=== PATIENT | female | born 1940 | race Caucasian/White ===

== ENCOUNTER 2020-08-02 09:30 | Outpatient (REF) | payer MEDICARE, OTHER, SELFPAY ==
--- NOTE | 2020-08-02 09:40 | MM_ITS ---
EXAMINATION: BONE DENSITOMETRY CLINICAL INDICATION: Postmenopausal. COMPARISON: Baseline BD dated 08/06/2008. TECHNIQUE: Using a [employer] DXA System (software version: 13.1) manufactured by [employer], dual-energy x-ray absorptiometry was performed of the lumbar spine and left hip. The images are of good technical quality. Summary results are attached. FINDINGS: AP SPINE L1-L2 (excluding L3 and L4): The data of L1-L4 has been changed to exclude the L3 and L4 vertebral bodies, because degenerative changes at these levels may cause overestimation of lumbar spine density. Current: BMD 0.909 g/cm2, Z-score -1.2, T-score -2.1, osteopenia, 6.2% increase from baseline (<5% change is not significant). Baseline: BMD 0.856 g/cm2. LEFT FEMUR, NECK: Current: BMD 0.868 g/cm2, Z-score 0.3, T-score -1.2, osteopenia. Baseline: BMD 0.873 g/cm2. LEFT FEMUR, TOTAL: Current: BMD 1.025 g/cm, Z-score 1.5, T-score 0.1, normal, 2.2% decrease from baseline (<5% change is not significant). Baseline: BMD 1.048 g/cm2. IDENTIFIED RISK FACTORS: Secondary osteoporosis (early menopause). Hysterectomy. Bilateral oophorectomy. HISTORY OF FRACTURE: None listed. MEDICATIONS: Multivitamin. IMPRESSION: 1. DIAGNOSIS: Osteopenia based on the lowest T-score value of -2.1 in the lumbar spine applying World Health Organization criteria. 2. 10-YEAR FRACTURE RISK PREDICTION, FRAX: Major osteoporotic fracture (clinical spine, forearm, hip or shoulder) 10.9%. Hip fracture 2.1%. 3. Treatment Recommendations: NOF guidelines recommend consideration for treatment in postmenopausal women and men age 50 and older presenting with the following: -A hip or vertebral (clinical or morphometric) fracture. -T-score less than or equal to -2.5 at the femoral neck or spine after appropriate evaluation to exclude secondary causes. -Low bone mass at the hip or spine and a 10-year fracture probability by FRAX of greater than or equal to 3% for hip fracture or greater than or equal to 20% for major osteoporotic fracture based on the [place] adapted WHO algorithm. 4. Other Recommendations: All treatment decisions require clinical judgment and consideration of individual patient factors, including patient preferences, comorbidities, previous drug use, risk factors not captured in the FRAX model (e.g. frailty, falls, vitamin D deficiency, increased bone turnover, interval significant decline in bone density) and possible under or overestimation of fracture risk by FRAX. Additional medical evaluation for secondary cause of low bone mineral density may be appropriate. FUTURE SCAN RECOMMENDATION: People with diagnosed cases of osteoporosis or at high risk for fracture should have regular bone mineral density tests. For patients eligible for Medicare, routine testing is allowed once every 2 years. The testing frequency can be increased to one year for patients who have rapidly progressing disease, those who are receiving or discontinuing medical therapy to restore bone mass, or have additional risk factors.
== END 2020-08-02 09:31 | disposition home or self-care (01) ==
LOC: HO.MAMMO 09:30
PROVIDERS: PCP Internal Medicine; Visit Provider Internal Medicine
DX: Z13.820 Encounter for screening for osteoporosis (principal); Z78.0 Asymptomatic menopausal state; Z79.899 Other long term (current) drug therapy
CPT/HCPCS: 77080

== ENCOUNTER 2020-08-16 12:32 | Outpatient (REF) | payer MEDICARE, OTHER, SELFPAY | END 2020-08-16 12:33 | disposition home or self-care (01) | LOC: HO.BBR 12:32 | PROVIDERS: PCP Internal Medicine; Visit Provider Internal Medicine Medical Oncology | DX: D75.1 Secondary polycythemia (principal) | CPT/HCPCS: 85018; 99195 ==

== ENCOUNTER → 2020-10-10 10:45 | Outpatient (BNV) | payer MEDICARE, OTHER, SELFPAY | PROVIDERS: PCP Internal Medicine; Visit Provider Internal Medicine Medical Oncology | DX: D75.1 Secondary polycythemia (principal) | CPT/HCPCS: 99212; 99213; 99214 ==

== ENCOUNTER 2020-10-10 13:04 | Outpatient (REF) | payer MEDICARE, OTHER, SELFPAY | END 2020-10-10 13:05 | disposition home or self-care (01) | LOC: HO.BBR 13:04 | PROVIDERS: Visit Provider Internal Medicine Medical Oncology | DX: D45 Polycythemia vera (principal) | CPT/HCPCS: 36415; 80053; 85025; 99195; 99214 ==

== ENCOUNTER 2020-12-05 12:54 | Outpatient (REF) | payer MEDICARE, OTHER, SELFPAY | END 2020-12-05 12:55 | disposition home or self-care (01) | LOC: HO.BBR 12:54 | PROVIDERS: Visit Provider Internal Medicine Medical Oncology | DX: D75.1 Secondary polycythemia (principal) | CPT/HCPCS: 85014; 85018; 99195 ==

== ENCOUNTER 2021-01-07 14:52 | Outpatient (REF) | payer MEDICARE, OTHER, SELFPAY | END 2021-01-07 14:53 | disposition home or self-care (01) | LOC: HO.BBR 14:52 | PROVIDERS: Visit Provider Internal Medicine Medical Oncology | DX: D75.1 Secondary polycythemia (principal) | CPT/HCPCS: 85014; 85018; 99195 ==

== ENCOUNTER 2021-02-04 13:42 | Outpatient (REF) | payer MEDICARE, OTHER, SELFPAY ==
[2021-02-04 14:12] LABS: MANUAL DIFF FLAG NO
[2021-02-04 14:15] LABS: Basophils Absolute Auto 0.1 X10*3/uL (0.0-0.2); Basophils Percent Auto 0.5 % (0-2); Eosinophils Absolute Auto 0.2 X10*3/uL (0.0-0.4); Eosinophils Percent Auto 1.6 % (0-4); Hematocrit 47.8 % (37-47); Hemoglobin 15.6 g/dl (12.0-16.0); Imm Gran Abs Auto 0.03 X10*3/uL (0.00-0.03); Imm Gran Pct Auto 0.3 % (0.0-0.4); Lymphocytes Absolute Auto 3.9 X10*3/uL (1.2-4.9); Lymphocytes Percent Auto 33.3 % (20-40); Mean Corpuscular HGB Conc 32.6 g/dl (31.0-35.0); Mean Corpuscular Hemoglobin 30.6 pg (27.0-33.0); Mean Corpuscular Volume 93.7 fL (80-98); Mean Platelet Volume 9.3 fL (9.4-12.3); Monocytes Absolute Auto 1.1 X10*3/uL (0.1-1.2); Monocytes Percent Auto 9.1 % (2-11); Neutrophils Absolute Auto 6.4 X10*3/uL (2.0-8.3); Neutrophils Percent Auto 55.2 % (45-73); Platelet Count 326 X10*3/uL (160-400); Red Cell Distribution Width 14.1 % (11.0-16.0); White Blood Count 11.6 X10*3/uL (4.8-10.8)
[2021-02-04 14:48] LABS: Alanine Aminotransferase 16 U/L (0-31); Albumin Level 4.1 g/dL (3.5-5.0); Alkaline Phosphatase 85 U/L (39-117); Anion Gap 13 (12-20); Aspartate Amino Transferase 17 U/L (5-31); Bilirubin Total 0.4 mg/dL (0.0-1.0); Blood Urea Nitrogen 16 mg/dL (9-16); Calcium 8.8 mg/dL (8.4-10.2); Carbon Dioxide 23 mmol/L (22-29); Chloride 107 mmol/L (96-108); Estimated Glomerular Filt Rate > 60; Glucose Random 102 mg/dL (60-115); Iron 102 mcg/dL (30-160); Percent Iron Saturation 29 % (15-50); Potassium 4.3 mmol/L (3.3-5.1); Sodium 139 mmol/L (135-145); Total Iron Binding Capacity 357 mcg/dL (228-428); Total Protein 6.9 g/dL (6.5-8.0); Unsaturated Iron Binding 255 ug/dL
[2021-02-04 15:08] LABS: Ferritin 17 ng/mL (10-250)
== END 2021-02-04 13:43 | disposition home or self-care (01) ==
LOC: HO.BBR 13:42
PROVIDERS: PCP Internal Medicine; Visit Provider Internal Medicine Medical Oncology
DX: D45 Polycythemia vera (principal)
CPT/HCPCS: 36415; 80053; 82728; 83540; 85014; 85018; 85025; 99195

== ENCOUNTER 2021-04-07 12:58 | Outpatient (REF) | payer MEDICARE, OTHER, SELFPAY | END 2021-04-07 12:59 | disposition home or self-care (01) | LOC: HO.BBR 12:58 | PROVIDERS: Visit Provider Internal Medicine Medical Oncology | DX: D45 Polycythemia vera (principal) | CPT/HCPCS: 36415; 99195 ==

== ENCOUNTER 2021-06-09 12:51 | Outpatient (REF) | payer MEDICARE, OTHER, SELFPAY ==
[2021-06-09 13:10] LABS: MANUAL DIFF FLAG NO
[2021-06-09 13:12] LABS: Basophils Absolute Auto 0.1 X10*3/uL (0.0-0.2); Basophils Percent Auto 0.5 % (0-2); Eosinophils Absolute Auto 0.2 X10*3/uL (0.0-0.4); Eosinophils Percent Auto 1.6 % (0-4); Hematocrit 48.8 % (37-47); Hemoglobin 16.1 g/dl (12.0-16.0); Imm Gran Abs Auto 0.04 X10*3/uL (0.00-0.03); Imm Gran Pct Auto 0.4 % (0.0-0.4); Lymphocytes Absolute Auto 4.7 X10*3/uL (1.2-4.9); Lymphocytes Percent Auto 41.4 % (20-40); Mean Corpuscular Hemoglobin 31.1 pg (27.0-33.0); Mean Corpuscular Volume 94.2 fL (80-98); Mean Platelet Volume 9.1 fL (9.4-12.3); Monocytes Absolute Auto 0.9 X10*3/uL (0.1-1.2); Monocytes Percent Auto 8.3 % (2-11); Neutrophils Absolute Auto 5.4 X10*3/uL (2.0-8.3); Neutrophils Percent Auto 47.8 % (45-73); Platelet Count 330 X10*3/uL (160-400); Red Blood Count 5.18 X10*6/uL (4.20-5.50); White Blood Count 11.3 X10*3/uL (4.8-10.8)
[2021-06-09 13:53] LABS: Alanine Aminotransferase 15 U/L (0-31); Albumin Level 4.3 g/dL (3.5-5.0); Alkaline Phosphatase 75 U/L (39-117); Anion Gap 16 (12-20); Aspartate Amino Transferase 16 U/L (5-31); Bilirubin Total 0.3 mg/dL (0.0-1.0); Blood Urea Nitrogen 18 mg/dL (9-16); Calcium 10.5 mg/dL (8.4-10.2); Carbon Dioxide 22 mmol/L (22-29); Chloride 106 mmol/L (96-108); Estimated Glomerular Filt Rate > 60; Glucose Random 101 mg/dL (60-115); Iron 150 mcg/dL (30-160); Percent Iron Saturation 38 % (15-50); Potassium 4.5 mmol/L (3.3-5.1); Sodium 139 mmol/L (135-145); Total Iron Binding Capacity 393 mcg/dL (228-428); Total Protein 7.3 g/dL (6.5-8.0); Unsaturated Iron Binding 243 ug/dL
[2021-06-09 14:14] LABS: Ferritin 22 ng/mL (10-250)
== END 2021-06-09 12:52 | disposition home or self-care (01) ==
LOC: HO.BBR 12:51
PROVIDERS: Visit Provider Internal Medicine Medical Oncology
DX: D45 Polycythemia vera (principal)
CPT/HCPCS: 36415; 80053; 82728; 83540; 85018; 85025; 99195

== ENCOUNTER 2021-08-12 12:59 | Outpatient (REF) | payer MEDICARE, OTHER, SELFPAY | END 2021-08-12 13:00 | disposition home or self-care (01) | LOC: HO.BBR 12:59 | PROVIDERS: Visit Provider Internal Medicine Medical Oncology | DX: D45 Polycythemia vera (principal) | CPT/HCPCS: 85018; 99195 ==

== ENCOUNTER 2021-10-14 11:53 | Outpatient (REF) | payer MEDICARE, OTHER, SELFPAY | END 2021-10-14 11:54 | disposition home or self-care (01) | LOC: HO.BBR 11:53 | PROVIDERS: Visit Provider Internal Medicine Medical Oncology | DX: D45 Polycythemia vera (principal) | CPT/HCPCS: 85014; 85018; 99195 ==

== ENCOUNTER 2021-12-16 11:58 | Outpatient (REF) | payer MEDICARE, OTHER, SELFPAY ==
[2021-12-16 12:11] LABS: MANUAL DIFF FLAG NO
[2021-12-16 12:15] LABS: Basophils Absolute Auto 0.1 X10*3/uL (0.0-0.2); Basophils Percent Auto 0.5 % (0-2); Eosinophils Absolute Auto 0.3 X10*3/uL (0.0-0.4); Eosinophils Percent Auto 2.4 % (0-4); Hematocrit 46.5 % (37.0-47.0); Hemoglobin 15.3 g/dl (12.0-16.0); Imm Gran Abs Auto 0.02 X10*3/uL (0.00-0.03); Imm Gran Pct Auto 0.2 % (0.0-0.4); Lymphocytes Absolute Auto 3.6 X10*3/uL (1.2-4.9); Lymphocytes Percent Auto 34.1 % (20-40); Mean Corpuscular HGB Conc 32.9 g/dl (31.0-35.0); Mean Corpuscular Hemoglobin 30.4 pg (27.0-33.0); Mean Corpuscular Volume 92.4 fL (80.0-98.0); Mean Platelet Volume 9.2 fL (9.4-12.3); Monocytes Absolute Auto 0.9 X10*3/uL (0.1-1.2); Monocytes Percent Auto 8.8 % (2-11); Neutrophils Absolute Auto 5.6 x10*3/uL (2.0-8.3); Platelet Count 347 X10*3/uL (160-400); Red Blood Count 5.03 X10*6/uL (4.20-5.50); Red Cell Distribution Width 13.9 % (11.0-16.0); White Blood Count 10.4 X10*3/uL (4.8-10.8)
[2021-12-16 12:31] LABS: Alanine Aminotransferase 13 U/L (0-31); Albumin Level 4.1 g/dL (3.5-5.0); Alkaline Phosphatase 80 U/L (39-117); Anion Gap 13 (12-20); Aspartate Amino Transferase 15 U/L (5-31); Bilirubin Total 0.5 mg/dL (0.0-1.0); Blood Urea Nitrogen 18 mg/dL (9-16); Calcium 10.1 mg/dL (8.4-10.2); Carbon Dioxide 25 mmol/L (22-29); Chloride 105 mmol/L (96-108); Estimated Glomerular Filt Rate > 60; Glucose Random 105 mg/dL (60-115); Iron 141 mcg/dL (30-160); Potassium 4.4 mmol/L (3.3-5.1); Sodium 139 mmol/L (135-145)
[2021-12-16 12:42] LABS: Percent Iron Saturation 37 % (15-50); Total Iron Binding Capacity 377 mcg/dL (228-428); Unsaturated Iron Binding 236 ug/dL
[2021-12-16 12:50] LABS: Ferritin 15 ng/mL (10-250)
== END 2021-12-16 11:59 | disposition home or self-care (01) ==
LOC: HO.BBR 11:58
PROVIDERS: Visit Provider Internal Medicine Medical Oncology
DX: D45 Polycythemia vera (principal)
CPT/HCPCS: 36415; 80053; 82728; 83540; 85014; 85018; 85025; 99195

== ENCOUNTER 2022-02-10 10:54 | Outpatient (REF) | payer MEDICARE, OTHER, SELFPAY | END 2022-02-10 10:55 | disposition home or self-care (01) | LOC: HO.BBR 10:54 | PROVIDERS: PCP Internal Medicine; Visit Provider Internal Medicine Medical Oncology | DX: D75.1 Secondary polycythemia (principal) | CPT/HCPCS: 85018 ==

== ENCOUNTER 2022-02-23 11:45 | Outpatient (REF) | payer MEDICARE, OTHER, SELFPAY | END 2022-02-23 11:46 | disposition home or self-care (01) | LOC: HO.BBR 11:45 | PROVIDERS: Visit Provider Internal Medicine Medical Oncology | DX: D75.1 Secondary polycythemia (principal) | CPT/HCPCS: 85018; 99195 ==

== ENCOUNTER 2022-03-26 14:11 | Outpatient (REF) | payer MEDICARE, OTHER, SELFPAY | END 2022-03-26 14:12 | disposition home or self-care (01) | LOC: HO.BBR 14:11 | PROVIDERS: Visit Provider Internal Medicine Medical Oncology | DX: D75.1 Secondary polycythemia (principal) | CPT/HCPCS: 85018; 99195 ==

== ENCOUNTER 2022-05-27 13:49 | Outpatient (REF) | payer MEDICARE, OTHER, SELFPAY ==
[2022-05-27 14:15] LABS: MANUAL DIFF FLAG NO
[2022-05-27 14:18] LABS: Basophils Absolute Auto 0.1 X10*3/uL (0.0-0.2); Basophils Percent Auto 0.6 % (0-2); Eosinophils Absolute Auto 0.2 X10*3/uL (0.0-0.4); Eosinophils Percent Auto 1.5 % (0-4); Hemoglobin 14.8 g/dl (12.0-16.0); Imm Gran Abs Auto 0.03 X10*3/uL (0.00-0.03); Imm Gran Pct Auto 0.3 % (0.0-0.4); Lymphocytes Percent Auto 37.1 % (20-40); Mean Corpuscular HGB Conc 32.2 g/dl (31.0-35.0); Mean Corpuscular Hemoglobin 30.6 pg (27.0-33.0); Mean Platelet Volume 9.4 fL (9.4-12.3); Monocytes Percent Auto 9.2 % (2-11); Neutrophils Absolute Auto 5.5 x10*3/uL (2.0-8.3); Neutrophils Percent Auto 51.3 % (45-73); Platelet Count 296 X10*3/uL (160-400); Red Blood Count 4.84 X10*6/uL (4.20-5.50); Red Cell Distribution Width 16.4 % (11.0-16.0); White Blood Count 10.8 X10*3/uL (4.8-10.8)
[2022-05-27 15:15] LABS: Alanine Aminotransferase 10 U/L (0-31); Albumin Level 4.2 g/dL (3.5-5.0); Alkaline Phosphatase 74 U/L (39-117); Anion Gap 12 (12-20); Aspartate Amino Transferase 14 U/L (5-31); Bilirubin Total 0.4 mg/dL (0.0-1.0); Blood Urea Nitrogen 14 mg/dL (9-16); Calcium 9.5 mg/dL (8.4-10.2); Carbon Dioxide 23 mmol/L (22-29); Chloride 108 mmol/L (96-108); Estimated Glomerular Filt Rate > 60; Glucose Random 114 mg/dL (60-115); Iron 119 mcg/dL (30-160); Percent Iron Saturation 28 % (15-50); Potassium 4.4 mmol/L (3.3-5.1); Sodium 139 mmol/L (135-145); Total Iron Binding Capacity 419 mcg/dL (228-428); Unsaturated Iron Binding 300 ug/dL
[2022-05-27 15:36] LABS: Ferritin 13 ng/mL (10-250)
== END 2022-05-27 13:50 | disposition home or self-care (01) ==
LOC: HO.BBR 13:49
PROVIDERS: Visit Provider Internal Medicine Medical Oncology
DX: D75.1 Secondary polycythemia (principal)
CPT/HCPCS: 36415; 80053; 82728; 83540; 85014; 85018; 85025; 99195

== ENCOUNTER 2022-07-14 10:48 | Outpatient (REF) | payer MEDICARE, OTHER, SELFPAY ==
[2022-07-14 14:08] LABS: Alanine Aminotransferase 17 U/L (0-31); Albumin Level 4.3 g/dL (3.5-5.0); Alkaline Phosphatase 82 U/L (39-117); Anion Gap 16 (12-20); Aspartate Amino Transferase 19 U/L (5-31); Bilirubin Total 0.4 mg/dL (0.0-1.0); Blood Urea Nitrogen 17 mg/dL (9-16); Calcium 9.5 mg/dL (8.4-10.2); Carbon Dioxide 23 mmol/L (22-29); Chloride 106 mmol/L (96-108); Cholesterol 202 mg/dL; Estimated Glomerular Filt Rate > 60; Glucose Random 105 mg/dL (60-115); HDL Cholesterol 57 mg/dL; LDL Cholesterol Calculated 128 mg/dl; Potassium 4.5 mmol/L (3.3-5.1); Sodium 140 mmol/L (135-145); Total Protein 7.2 g/dL (6.5-8.0); Triglycerides 88 mg/dL
[2022-07-14 14:31] LABS: Thyroid Stimulating Hormone 1.28 uIU/mL (0.32-4.0); Vitamin D 25-OH Total 31.9 ng/mL (>30)
[2022-07-14 14:37] LABS: Folate 10.2 ng/mL (> or = 4.0); Vitamin B12 380 pg/mL (200-900)
== END 2022-07-14 10:49 | disposition home or self-care (01) ==
LOC: HO.HMGCLDS 10:48
PROVIDERS: PCP Internal Medicine; Visit Provider Internal Medicine
DX: E66.9 Obesity, unspecified (principal); E78.00 Pure hypercholesterolemia, unspecified
CPT/HCPCS: 36415; 80053; 80061; 82306; 82607; 82746; 84439; 84443

== ENCOUNTER 2022-07-28 13:47 | Outpatient (REF) | payer MEDICARE, OTHER, SELFPAY | END 2022-07-28 13:48 | disposition home or self-care (01) | LOC: HO.BBR 13:47 | PROVIDERS: Visit Provider Internal Medicine Medical Oncology | DX: D75.1 Secondary polycythemia (principal) | CPT/HCPCS: 85018; 99195 ==

== ENCOUNTER 2022-09-29 13:43 | Outpatient (REF) | payer MEDICARE, OTHER, SELFPAY ==
[2022-09-29 14:24] LABS: Basophils Absolute Auto 0.1 X10*3/uL (0.0-0.2); Basophils Percent Auto 0.5 % (0-2); Eosinophils Absolute Auto 0.2 X10*3/uL (0.0-0.4); Eosinophils Percent Auto 1.8 % (0-4); Hematocrit 47.5 % (37.0-47.0); Hemoglobin 15.6 g/dl (12.0-16.0); Imm Gran Abs Auto 0.02 X10*3/uL (0.00-0.03); Imm Gran Pct Auto 0.2 % (0.0-0.4); Lymphocytes Absolute Auto 3.6 X10*3/uL (1.2-4.9); Lymphocytes Percent Auto 38.2 % (20-40); MANUAL DIFF FLAG NO; Mean Corpuscular HGB Conc 32.8 g/dl (31.0-35.0); Mean Corpuscular Hemoglobin 31.1 pg (27.0-33.0); Mean Corpuscular Volume 94.8 fL (80.0-98.0); Mean Platelet Volume 9.1 fL (9.4-12.3); Monocytes Absolute Auto 0.8 X10*3/uL (0.1-1.2); Monocytes Percent Auto 8.1 % (2-11); Neutrophils Absolute Auto 4.8 x10*3/uL (2.0-8.3); Neutrophils Percent Auto 51.2 % (45-73); Platelet Count 332 X10*3/uL (160-400); Red Blood Count 5.01 X10*6/uL (4.20-5.50); Red Cell Distribution Width 12.7 % (11.0-16.0); White Blood Count 9.4 X10*3/uL (4.8-10.8)
[2022-09-29 15:40] LABS: Alanine Aminotransferase 13 U/L (0-31); Albumin Level 4.1 g/dL (3.5-5.0); Alkaline Phosphatase 85 U/L (39-117); Anion Gap 13 (12-20); Aspartate Amino Transferase 16 U/L (5-31); Bilirubin Total 0.5 mg/dL (0.0-1.0); Blood Urea Nitrogen 18 mg/dL (9-16); Calcium 9.9 mg/dL (8.4-10.2); Carbon Dioxide 24 mmol/L (22-29); Chloride 103 mmol/L (96-108); Estimated Glomerular Filt Rate > 60; Ferritin 18 ng/mL (10-250); Glucose Random 109 mg/dL (60-115); Iron 108 mcg/dL (30-160); Percent Iron Saturation 30 % (15-50); Potassium 4.3 mmol/L (3.3-5.1); Sodium 136 mmol/L (135-145); Total Iron Binding Capacity 356 mcg/dL (228-428); Unsaturated Iron Binding 248 ug/dL
== END 2022-09-29 13:44 | disposition home or self-care (01) ==
LOC: HO.BBR 13:43
PROVIDERS: Visit Provider Internal Medicine Medical Oncology
DX: D75.1 Secondary polycythemia (principal)
CPT/HCPCS: 36415; 80053; 82728; 83540; 85018; 85025; 99195

== ENCOUNTER 2022-12-03 13:48 | Outpatient (REF) | payer MEDICARE, OTHER, SELFPAY | END 2022-12-03 13:49 | disposition home or self-care (01) | LOC: HO.BBR 13:48 | PROVIDERS: Visit Provider Internal Medicine Medical Oncology | DX: D75.1 Secondary polycythemia (principal) | CPT/HCPCS: 85014; 85018; 99195 ==

== ENCOUNTER 2023-02-01 13:42 | Outpatient (REF) | payer MEDICARE, OTHER, SELFPAY | END 2023-02-01 13:43 | disposition home or self-care (01) | LOC: HO.BBR 13:42 | PROVIDERS: PCP Internal Medicine; Visit Provider Internal Medicine Medical Oncology | DX: D75.1 Secondary polycythemia (principal) | CPT/HCPCS: 85014; 85018; 99195 ==

== ENCOUNTER 2023-05-03 13:43 | Outpatient (REF) | payer MEDICARE, OTHER, SELFPAY | END 2023-05-03 13:44 | disposition home or self-care (01) | LOC: HO.BBR 13:43 | PROVIDERS: PCP Internal Medicine; Visit Provider Internal Medicine Medical Oncology | DX: D45 Polycythemia vera (principal) | CPT/HCPCS: 85018; 99195 ==

== ENCOUNTER 2023-05-17 12:39 | Outpatient (REF) | payer MEDICARE, OTHER, SELFPAY | END 2023-05-17 12:40 | disposition home or self-care (01) | LOC: HO.BBR 12:39 | PROVIDERS: PCP Internal Medicine; Visit Provider Internal Medicine Medical Oncology | DX: D75.1 Secondary polycythemia (principal) | CPT/HCPCS: 85018; 99195 ==

== ENCOUNTER 2023-07-19 08:31 | Outpatient (REF) | payer MEDICARE, OTHER, SELFPAY ==
[2023-07-19 11:22] LABS: MANUAL DIFF FLAG NO
[2023-07-19 11:32] LABS: Basophils Percent Auto 0.4 % (0-2); Eosinophils Absolute Auto 0.2 X10*3/uL (0.0-0.4); Eosinophils Percent Auto 1.9 % (0-4); Hematocrit 48.2 % (37.0-47.0); Hemoglobin 15.8 g/dl (12.0-16.0); Imm Gran Abs Auto 0.04 X10*3/uL (0.00-0.03); Imm Gran Pct Auto 0.4 % (0.0-0.4); Immature Retic Fraction 13.4 % (3.0-15.9); Lymphocytes Absolute Auto 3.8 X10*3/uL (1.2-4.9); Lymphocytes Percent Auto 39.3 % (20-40); Mean Corpuscular HGB Conc 32.8 g/dl (31.0-35.0); Mean Corpuscular Volume 91.6 fL (80.0-98.0); Mean Platelet Volume 10.1 fL (9.4-12.3); Monocytes Absolute Auto 0.8 X10*3/uL (0.1-1.2); Monocytes Percent Auto 7.9 % (2-11); Neutrophils Absolute Auto 4.9 x10*3/uL (2.0-8.3); Neutrophils Percent Auto 50.1 % (45-73); Platelet Count 386 X10*3/uL (160-400); Red Blood Count 5.26 X10*6/uL (4.20-5.50); Red Cell Distribution Width 14.2 % (11.0-16.0); Retic HGB Equivalent 36.4 pg (30.0-35.0); Reticulocyte Percent 1.9 % (0.5-1.8); Reticulocytes Absolute 0.097 X10*6/uL (0.026-0.095); White Blood Count 9.8 X10*3/uL (4.8-10.8)
[2023-07-19 12:21] LABS: Ferritin 22 ng/mL (10-250); Free T4 (Free Thyroxine) 0.83 ng/dL (0.71-1.85)
[2023-07-19 12:24] LABS: Folate 11.3 ng/mL (> or = 4.0); Vitamin B12 410 pg/mL (200-900)
[2023-07-19 12:31] LABS: Alanine Aminotransferase 10 U/L (0-31); Albumin Level 4.4 g/dL (3.5-5.0); Alkaline Phosphatase 80 U/L (39-117); Anion Gap 12 (12-20); Aspartate Amino Transferase 17 U/L (5-31); Bilirubin Total 0.4 mg/dL (0.0-1.0); Blood Urea Nitrogen 20 mg/dL (9-16); Calcium 10.2 mg/dL (8.4-10.2); Carbon Dioxide 22 mmol/L (22-29); Chloride 108 mmol/L (96-108); Estimated Glomerular Filt Rate > 60; Glucose Random 107 mg/dL (60-115); Potassium 4.1 mmol/L (3.3-5.1); Sodium 138 mmol/L (135-145); Total Protein 7.7 g/dL (6.5-8.0)
[2023-07-19 12:32] LABS: Thyroid Stimulating Hormone 1.38 uIU/mL (0.32-4.0)
== END 2023-07-19 08:32 | disposition home or self-care (01) ==
LOC: HO.HMGCLDS 08:31
PROVIDERS: Internal Medicine Medical Oncology; PCP Internal Medicine; Visit Provider Internal Medicine
DX: D75.1 Secondary polycythemia (principal); I10 Essential (primary) hypertension
CPT/HCPCS: 36415; 80053; 82607; 82728; 82746; 84439; 84443; 85025; 85045

== ENCOUNTER 2023-07-21 12:40 | Outpatient (AMB) | payer MEDICARE, OTHER, SELFPAY ==
[2023-07-21 12:45] VITALS: BP 148/82; PULSE 75; O2SAT 98; BMI 37.4
--- NOTE | 2023-07-21 12:45 | A.OFFPC_ITS ---
Vital Signs 07/21/23 12:45 Height 5 ft 1 in Weight 198 lb BMI 37.4 BP 148/82 H Blood Pressure Location Lt brachial Position Sitting Pulse 75 Pulse Source Pulse Oximeter Pulse Oximetry (%) 98 Oxygen Delivery Method Room Air Intake Visit Reasons: Polycythemia hypertension Allergies hydrochlorothiazide [HYDROCHLOROTHIAZIDE] Allergy (Intermediate, Verified 07/21/23 12:45) SEVERE CRAMPING aspirin [From Percodan] Allergy (Unknown, Verified 07/21/23 12:45) Tachycardia metoprolol Allergy (Unknown, Verified 07/21/23 12:45) Muscle aches morphine [MORPHINE] Allergy (Unknown, Verified 07/21/23 12:45) Nausea and Vomiting oxycodone [From PERCODAN] Allergy (Unknown, Verified 07/21/23 12:45) Unknown Seasonal Allergies Allergy (Unknown, Verified 07/21/23 12:45) Itchy Eyes hydrochloride Allergy (Mild, Uncoded 07/21/23 12:45) Stomach Upset Medication List - Last Reconciled 07/21/23 by Vlad Ralph MD amlodipine-valsartan 5-320 mg 1 tab PO DAILY 90 days aspirin 81 mg PO DAILY cholecalciferol (vitamin D3) (Vitamin D3) 25 mcg PO DAILY multivitamin 1 tab PO DAILY Tobacco use date assessed: 01/14/23 Fall risk assessment: No Falls in past year Last assessed Fall Risk: 07/21/23 Dental Screening Dental Screen Date: 07/21/23 Did you have a dental visit in the last 12 months?: Yes Did you have a dental problem in the last 6 months where you did not have access to dental care?: No Was dental information given to patient?: Patient has dentist HPI Polycythemia hypertension HPI Details 83-year-old obese female with polycythem ia vera having therapeutic phlebotomy hypertension and benign hematuria coming in for follow-up last seen in December 2022 blood work was requested. [facility] Medical History (Updated 07/13/23 @ 11:21 by KarmaKey) Osteopenia Diaphragmatic hernia Renal calculi Cervical spondylosis Allergic rhinitis Vitamin D deficiency Tubular adenoma of colon Hypertension Erythrocytosis Surgical History Vaginal cyst History of cataract surgery S/P CLARISSA-BSO (total abdominal hysterectomy and bilateral salpingo-oophorectomy) History of appendectomy History of reconstruction of both breasts Family History Father Lung cancer Brother Lung cancer COPD (chronic obstructive pulmonary disease) Diabetes Daughter HTN (hypertension) Stroke Social History Household Members: None Housing: House Are you a primary hospice spiritual care coordinator to a significant other at home: No Do you presently have visiting nurse or other home services: No Alcohol intake: current Alcohol intake frequency: holidays/special occasions only Alcohol type: wine Patient Tobacco Use Status: Never used Tobacco e-Cigarette/Vaping Use: Never Used Second Hand Smoke Exposure: No service: No Current occupational status: retired Cognitive needs: No Hearing needs: No Vision needs: Yes Questionnaire PHQ-9 Over the last 2 weeks, how often have you been bothered by any of the following problems? 1. Little interest or pleasure in doing things: not at all 2. Feeling down, depressed, or hopeless: not at all 3. Trouble falling or staying asleep, or sleeping too much: not at all 4. Feeling tired or having little energy: not at all 5. Poor appetite or overeating: not at all 6. Feeling bad about yourself - or that you are a failure or have let yourself or your family down: not at all 7. Trouble concentrating on things, such as reading the newspaper or watching television: not at all 8. Moving or speaking so slowly that other people could have noticed. Or the opposite - being so fidgety or restless that you have been moving around a lot more than usual: not at all 9. Thoughts that you would be better off or of hurting yourself in some way: not at all Total score: 0 Depression Screening Interpretation: Negative Source: Developed by Drs. Pola Vargas, Theresa Glover, Anirudh Voss and colleagues, with an educational sujata from [employer]. Thrive Questionnaire Date Thrive assessed: 01/14/23 AUDIT C Alcohol Use Questionnaire (AUDIT-C) 1. How often do you have a drink containing alcohol?: Never 3. How often do you have six or more drinks on one occasion?: Never Total Score: 0 ANAMARIA-7 AMB Questionnaire ANAMARIA-7 Date ANAMARIA - 7 assessed: 01/14/23 Source: Developed by Drs. Pola Vargas, Theresa Glover, Anirudh Voss and colleagues, with an educational sujata from [employer]. Physical exam (Primary Care) Vital Signs: Last Vital Signs Pulse 75 07/21/23 12:45 BP 148/82 H 07/21/23 12:45 Pulse Ox 98 07/21/23 12:45 Oxygen Delivery Method Room Air 07/21/23 12:45 BMI result Body Mass Index 37.4 Tobacco/Smoking Status: Tobacco use Status Tobacco use date assessed 01/14/23 07/21/23 12:46 Patient Tobacco Use Status Never used Tobacco 07/21/23 12:46 e-Cigarette/Vaping Use Never Used 07/21/23 12:46 PHQ-9: PHQ-9 Score PHQ-9: Total score 0 07/21/23 13:26 Depression Screening Interpretation: Negative Thrive Assessment: Date of Thrive Assessment Date Thrive assessed 01/14/23 07/21/23 12:46 Const General: alert; No acute distress Eyes Conjunctivae: conjunctivae normal Resp Auscultation: clear to auscultation bilaterally Cardio Rate: regular rate Rhythm: regular rhythm GI Inspection: Yes normal to inspection Extrem General: Yes normal to inspection and No edema Assessment and Plan Assessment & Plan (1) Obesity (BMI 30-39.9): Code(s): E66.9 - Obesity, unspecified Plan: Diet and exercise (2) Polycythemia vera: Code(s): D45 - Polycythemia vera Plan: Patient continues to follow-up with Hematology Oncology and has therapeutic phlebotomy hematocrit goal of 15-16 (3) Hypertension: Code(s): I10 - Essential (primary) hypertension Qualifiers: Hypertension type: essential hypertension Qualified Code(s): I10 - Essential (primary) hypertension Plan: Continue with blood pressure medication. Decrease salt intake and exercise patient on amlodipine valsartan 5/320 mg once a day Medications: New amlodipine-valsartan 10-320 mg 1 tab PO DAILY 90 tabs 2RF I10 - Essential (primary) hypertension Coding Level of Care Code Est Pt Level 4 (84915) Diagnoses Obesity (BMI 30-39.9) E66.9 Polycythemia vera D45 Essential hypertension I10 Hypertension type: essential hypertension
== END 2023-07-21 14:10 | disposition home or self-care (01) ==
PROVIDERS: Visit Provider Internal Medicine
DX: D45 Polycythemia vera (principal); I10 Essential (primary) hypertension; E66.9 Obesity, unspecified; Z68.37 Body mass index [BMI] 37.0-37.9, adult
CPT/HCPCS: 99214

== ENCOUNTER 2023-07-28 11:54 | Outpatient (REF) | payer MEDICARE, OTHER, SELFPAY | END 2023-07-28 11:55 | disposition home or self-care (01) | LOC: HO.BBR 11:54 | PROVIDERS: Visit Provider Internal Medicine Medical Oncology | DX: D75.1 Secondary polycythemia (principal) | CPT/HCPCS: 85018; 99195 ==

== ENCOUNTER 2023-09-28 11:45 | Outpatient (REF) | payer MEDICARE, OTHER, SELFPAY | END 2023-09-28 11:46 | disposition home or self-care (01) | LOC: HO.BBR 11:45 | PROVIDERS: PCP Internal Medicine; Visit Provider Internal Medicine Medical Oncology | DX: D75.1 Secondary polycythemia (principal) | CPT/HCPCS: 85018; 99195 ==

== ENCOUNTER 2023-10-26 14:29 | Outpatient (AMB) | payer MEDICARE, OTHER, SELFPAY ==
[2023-10-26 14:33] VITALS: BP 150/86; PULSE 93; O2SAT 97; BMI 37.3
--- NOTE | 2023-10-26 14:33 | A.OFFPC_ITS ---
Vital Signs 10/26/23 14:33 10/26/23 15:18 Height 5 ft 1 in Weight 197 lb 4 oz BMI 37.3 BP 150/86 H 134/80 Blood Pressure Location Lt brachial Lt brachial Position Sitting Sitting Pulse 93 Pulse Source Pulse Oximeter Pulse Oximetry (%) 97 Oxygen Delivery Method Room Air Intake Visit Reasons: Hypertension Reel Fed Printer Required: No Accompanied by: Self / Same As Patient Allergies hydrochlorothiazide [HYDROCHLOROTHIAZIDE] Allergy (Intermediate, Verified 10/26/23 14:33) SEVERE CRAMPING aspirin [From Percodan] Allergy (Unknown, Verified 10/26/23 14:33) Tachycardia metoprolol Allergy (Unknown, Verified 10/26/23 14:33) Muscle aches morphine [MORPHINE] Allergy (Unknown, Verified 10/26/23 14:33) Nausea and Vomiting oxycodone [From PERCODAN] Allergy (Unknown, Verified 10/26/23 14:33) Unknown Seasonal Allergies Allergy (Unknown, Verified 10/26/23 14:33) Itchy Eyes hydrochloride Allergy (Mild, Uncoded 07/27/23 13:06) Stomach Upset Medication List - Last Reconciled 10/26/23 by Vlad Ralph MD amlodipine-valsartan 10-320 mg 1 tab PO DAILY aspirin 81 mg PO DAILY cholecalciferol (vitamin D3) (Vitamin D3) 25 mcg PO DAILY hydroxyurea 500 mg PO BID multivitamin 1 tab PO DAILY Tobacco use date assessed: 01/14/23 Last assessed Fall Risk: 10/26/23 Dental Screening Dental Screen Date: 10/26/23 Did you have a dental visit in the last 12 months?: Yes Did you have a dental problem in the last 6 months where you did not have access to dental care?: No Was dental information given to patient?: Patient has dentist HPI Hypertension HPI Details 83-year-old obese female with a history of polycythemia vera and hypertension last seen in July 2023. Patient's colonoscopy is done decline mammogram. Review of the notes has seen urology regarding the a microscopic hematuria nephrolithiasis options of serial examination versus ESWL planned ESWL. Patient was seen in October 2023. Patient also follows up with hematology oncology having therapeutic phlebotomy. And history of breast cancer with bilateral mastectomies with implants [id number] having breast reconstruction with implant rup patient has Hydrea therapy 500 mg once a day trying to keep the hemoglobin at 14-15 g A PFSH Medical History (Updated 10/26/23 @ 15:21 by Vlad Ralph MD) Osteopenia Diaphragmatic hernia Renal calculi Cervical spondylosis Allergic rhinitis Vitamin D deficiency Tubular adenoma of colon Hypertension Erythrocytosis Surgical History Vaginal cyst History of cataract surgery S/P CLARISSA-BSO (total abdominal hysterectomy and bilateral salpingo-oophorectomy) History of appendectomy History of reconstruction of both breasts Family History Father Lung cancer Brother Lung cancer COPD (chronic obstructive pulmonary disease) Diabetes Daughter HTN (hypertension) Stroke Social History Household Members: None Housing: House Are you a primary health care facilities inspector to a significant other at home: No Do you presently have visiting nurse or other home services: No Alcohol intake: current Alcohol intake frequency: holidays/special occasions only Alcohol type: wine Patient Tobacco Use Status: Never used Tobacco e-Cigarette/Vaping Use: Never Used Second Hand Smoke Exposure: No service: No Current occupational status: retired Cognitive needs: No Hearing needs: No Vision needs: Yes Questionnaire Thrive Questionnaire Date Thrive assessed: 01/14/23 ANAMARIA-7 AMB Questionnaire ANAMARIA-7 Date ANAMARIA - 7 assessed: 01/14/23 Source: Developed by Drs. Pola Vargas, Theresa Glover, Anirudh Voss and colleagues, with an educational sujata from [employer]. Physical exam (Primary Care) Vital Signs: Last Vital Signs Pulse 93 10/26/23 14:33 BP 150/86 H 10/26/23 14:33 Pulse Ox 97 10/26/23 14:33 Oxygen Delivery Method Room Air 10/26/23 14:33 BMI result Body Mass Index 37.3 Tobacco/Smoking Status: Tobacco use Status Tobacco use date assessed 01/14/23 10/26/23 14:34 Patient Tobacco Use Status Never used Tobacco 10/26/23 14:34 e-Cigarette/Vaping Use Never Used 10/26/23 14:34 Thrive Assessment: Date of Thrive Assessment Date Thrive assessed 01/14/23 10/26/23 14:34 Const General: alert; No acute distress Eyes Conjunctivae: conjunctivae normal Resp Auscultation: clear to auscultation bilaterally Cardio Rate: regular rate Rhythm: regular rhythm GI Inspection: Yes normal to inspection Extrem General: Yes normal to inspection and No edema Assessment and Plan Assessment & Plan (1) Obesity (BMI 30-39.9): Code(s): E66.9 - Obesity, unspecified Plan: Diet and exercise (2) Polycythemia vera: Code(s): D45 - Polycythemia vera Plan: Patient follows up with hematology and has therapeutic phlebotomy and placed on Hydrea (3) Hypertension: Code(s): I10 - Essential (primary) hypertension Qualifiers: Hypertension type: essential hypertension Qualified Code(s): I10 - Essential (primary) hypertension Plan: Continue with blood pressure medication. Decrease salt intake and exercise on amlodipine valsartan 08/03/2020 once a day (4) Renal calculi: Comment: Bilateral September 2018, April 2020 left renal calculi Code(s): N20.0 - Calculus of kidney Plan: seeing Urology and planned ESWL Orders: Orders Free T4 (Free Thyroxine) Today I10 - Essential (primary) hypertension Vitamin B12 and Folate Today I10 - Essential (primary) hypertension Vitamin D 25-OH Total Today I10 - Essential (primary) hypertension Thyroid Stimulating Hormone Today I10 - Essential (primary) hypertension Lipid Panel Today E78.00 - Pure hypercholesterolemia, unspecified Coding Level of Care Code Est Pt Level 4 (39826) Diagnoses Obesity (BMI 30-39.9) E66.9 Polycythemia vera D45 Essential hypertension I10 Hypertension type: essential hypertension Renal calculi N20.0
[2023-10-26 15:18] VITALS: BP 134/80
== END 2023-10-26 15:29 | disposition home or self-care (01) ==
PROVIDERS: PCP Internal Medicine; Visit Provider Internal Medicine
DX: D45 Polycythemia vera (principal); E66.9 Obesity, unspecified; I10 Essential (primary) hypertension; Z68.37 Body mass index [BMI] 37.0-37.9, adult; N20.0 Calculus of kidney
CPT/HCPCS: 99214

== ENCOUNTER 2023-11-30 11:44 | Outpatient (REF) | payer MEDICARE, OTHER, SELFPAY | END 2023-11-30 11:45 | disposition home or self-care (01) | LOC: HO.BBR 11:44 | PROVIDERS: PCP Internal Medicine; Visit Provider Internal Medicine Medical Oncology | DX: D75.1 Secondary polycythemia (principal) | CPT/HCPCS: 85018; 99195 ==

== ENCOUNTER 2024-01-27 11:54 | Outpatient (REF) | payer MEDICARE, OTHER, SELFPAY | END 2024-01-27 11:55 | disposition home or self-care (01) | LOC: HO.BBR 11:54 | PROVIDERS: PCP Internal Medicine; Visit Provider Internal Medicine Medical Oncology | DX: D75.1 Secondary polycythemia (principal) | CPT/HCPCS: 85014; 85018; 99195 ==

== ENCOUNTER 2024-04-05 11:53 | Outpatient (REF) | payer MEDICARE, OTHER, SELFPAY | END 2024-04-05 11:54 | disposition home or self-care (01) | LOC: HO.BBR 11:53 | PROVIDERS: PCP Internal Medicine; Visit Provider Internal Medicine Medical Oncology | DX: D75.1 Secondary polycythemia (principal) | CPT/HCPCS: 85018; 99195 ==

== ENCOUNTER 2024-04-27 07:57 | Outpatient (REF) | payer MEDICARE, OTHER, SELFPAY ==
[2024-04-27 12:08] LABS: Cholesterol 198 mg/dL (<200); HDL Cholesterol 63 mg/dL (>40); LDL Cholesterol Calculated 123 mg/dL (<100); Triglycerides 62 mg/dL (<150)
[2024-04-27 12:33] LABS: Folate 9.9 ng/mL (> or = 4.0); Vitamin B12 423 pg/mL (200-900)
[2024-04-27 12:44] LABS: Free T4 (Free Thyroxine) 0.83 ng/dL (0.71-1.85); Thyroid Stimulating Hormone 1.19 uIU/mL (0.32-4.0); Vitamin D 25-OH Total 40.5 ng/mL (>30)
== END 2024-04-27 07:58 | disposition home or self-care (01) ==
LOC: HO.HMGCLDS 07:57
PROVIDERS: PCP Internal Medicine; Visit Provider Internal Medicine
DX: I10 Essential (primary) hypertension (principal); E78.00 Pure hypercholesterolemia, unspecified
CPT/HCPCS: 36415; 80061; 82306; 82607; 82746; 84439; 84443

== ENCOUNTER 2024-05-02 14:36 | Outpatient (AMB) | payer MEDICARE, OTHER, SELFPAY ==
[2024-05-02 14:57] VITALS: BP 144/80; PULSE 100; O2SAT 98; BMI 36.7
--- NOTE | 2024-05-02 14:57 | A.OFFPC_ITS ---
Vital Signs 05/02/24 14:57 05/02/24 15:51 Height 5 ft 1 in Weight 194 lb BMI 36.7 BP 144/80 H 138/80 Blood Pressure Location Lt brachial Lt brachial Position Sitting Sitting Pulse 100 Pulse Source Pulse Oximeter Pulse Oximetry (%) 98 Oxygen Delivery Method Room Air Intake Visit Reasons: pe Front Office Representative Required: No Public Service Representative: Not Required per policy Accompanied by: Self / Same As Patient Allergies hydrochlorothiazide [HYDROCHLOROTHIAZIDE] Allergy (Intermediate, Verified 05/02/24 14:58) SEVERE CRAMPING metoprolol Allergy (Unknown, Verified 05/02/24 14:58) Muscle aches morphine [MORPHINE] Allergy (Unknown, Verified 05/02/24 14:58) Nausea and Vomiting oxycodone [From PERCODAN] Allergy (Unknown, Verified 05/02/24 14:58) Unknown Seasonal Allergies Allergy (Unknown, Verified 05/02/24 14:58) Itchy Eyes hydrochloride Allergy (Mild, Uncoded 05/02/24 14:58) Stomach Upset Medication List - Last Reconciled 05/02/24 by Vlad Ralph MD amlodipine-valsartan 10-320 mg 1 tab PO DAILY aspirin 81 mg PO DAILY cholecalciferol (vitamin D3) (Vitamin D3) 25 mcg PO DAILY hydroxyurea 500 mg PO BID multivitamin 1 tab PO DAILY Tobacco use date assessed: 05/02/24 Fall risk assessment: No Falls in past year Last assessed Fall Risk: 05/02/24 Dental Screening Dental Screen Date: 05/02/24 Did you have a dental visit in the last 12 months?: Yes Did you have a dental problem in the last 6 months where you did not have access to dental care?: No Was dental information given to patient?: Patient has dentist HPI pe HPI Details 54-year-old female with a history of alc ohol use disorder, smoker with hypercholesterolemia generalized anxiety disorder history of carotid artery stenosis with a history of CVA and hypertension coming in for follow-up last seen in December. Patient's mammogram isuptodate- seeing vascular- carotid 12/2023. nose basal cell nose NEDERM. Urology done ESWL 01/2024 and 06/[address] [facility] Medical History (Updated 05/02/24 @ 15:48 by Vlad Ralph MD) Osteopenia Diaphragmatic hernia Renal calculi Cervical spondylosis Allergic rhinitis Vitamin D deficiency Tubular adenoma of colon Hypertension Erythrocytosis Surgical History Vaginal cyst History of cataract surgery S/P CLARISSA-BSO (total abdominal hysterectomy and bilateral salpingo-oophorectomy) History of appendectomy History of reconstruction of both breasts Family History Father Lung cancer Brother Lung cancer COPD (chronic obstructive pulmonary disease) Diabetes Daughter HTN (hypertension) Stroke Social History (Updated 05/02/24 @ 15:53 by Vlad Ralph MD) Household Members: None Housing: House Are you a primary manager care to a significant other at home: No Do you presently have visiting nurse or other home services: No Alcohol intake: never Patient Tobacco Use Status: Never used Tobacco e-Cigarette/Vaping Use: Never Used Second Hand Smoke Exposure: No service: No Current occupational status: retired Cognitive needs: No Hearing needs: No Vision needs: Yes Questionnaire PHQ-9 Over the last 2 weeks, how often have you been bothered by any of the following problems? 1. Little interest or pleasure in doing things: not at all 2. Feeling down, depressed, or hopeless: not at all 3. Trouble falling or staying asleep, or sleeping too much: not at all 4. Feeling tired or having little energy: not at all 5. Poor appetite or overeating: not at all 6. Feeling bad about yourself - or that you are a failure or have let yourself or your family down: not at all 7. Trouble concentrating on things, such as reading the newspaper or watching television: not at all 8. Moving or speaking so slowly that other people could have noticed. Or the opposite - being so fidgety or restless that you have been moving around a lot more than usual: not at all 9. Thoughts that you would be better off or of hurting yourself in some way: not at all Total score: 0 Depression Screening Interpretation: Negative Depression Screening Done: Yes Source: Developed by Drs. Pola Vargas, Theresa Glover, Anirudh Voss and colleagues, with an educational sujata from [employer] Thrive Questionnaire Date Thrive assessed: 05/02/24 I am a: Patient What is your living situation today?: I have a steady place to live Within the past 12 months, did the food you bought not last and you didn't have the money to get more?: Never true Within the past 12 months, did you worry whether your food would run out before you got money to buy more?: Never true Do you have trouble paying for medicines?: No Do you have trouble getting transportation to medical appointments?: No Do you have trouble paying your heating and electricity bill?: No Do you have trouble taking care of your child, family member or friend?: No Do you have trouble with day-to-day activities such as bathing, preparing meals, shopping, managing finances, etc.?: No Are you currently unemployed and looking for a job?: No Are you interested in more education?: No Please select the resources that you would like help with: None THRIVE Score: 0 AUDIT C Alcohol Use Questionnaire (AUDIT-C) 1. How often do you have a drink containing alcohol?: Never 3. How often do you have six or more drinks on one occasion?: Never Total Score: 0 ANAMARIA-7 AMB Questionnaire ANAMARIA-7 Date ANAMARIA - 7 assessed: 05/02/24 Feeling nervous, anxious, or on edge: 0 = Not at all Not being able to stop or control worryin = Not at all Worrying too much about different things: 0 = Not at all Trouble relaxin = Not at all Being so restless that it is hard to sit still: 0 = Not at all Becoming easily annoyed or irritable: 0 = Not at all Feeling afraid as if something awful might happen: 0 = Not at all Total ANAMARIA-7 score (0-4 normal; 5-9 mild; 10-14 moderate; 15-21 severe): 0 Source: Developed by Drs. Pola Vargas, Theresa Glover, Anirudh Voss and colleagues, with an educational sujata from [employer] Review of Systems Const Denies poor appetite and Denies weakness Eyes Denies no additional complaints ENT Reports Normal hearing present, Denies dizziness, Denies nasal congestion, Denies tinnitus and Denies sore throat Card Denies chest pain, Denies syncope, Denies rapid heart rate and Denies dyspnea Resp Denies cough and Denies dyspnea GI Denies change in stool character, Reports constipation, Denies diarrhea, Denies nausea and Denies vomiting Denies urinary frequency, Denies difficulty voiding and Denies dysuria Neuro Reports Normal hearing present, Denies confusion, Denies dizziness, Denies syncope and Denies weakness Psych Denies confusion Physical exam (Primary Care) Vital Signs: Last Vital Signs Pulse 100 05/02/24 14:57 BP 138/80 05/02/24 15:51 Pulse Ox 98 05/02/24 14:57 Oxygen Delivery Method Room Air 05/02/24 14:57 BMI result Body Mass Index 36.7 Tobacco/Smoking Status: Tobacco use Status Tobacco use date assessed 05/02/24 05/02/24 15:02 Patient Tobacco Use Status Never used Tobacco 05/02/24 15:53 e-Cigarette/Vaping Use Never Used 05/02/24 15:53 PHQ-9: PHQ-9 Score PHQ-9: Total score 0 05/02/24 15:56 Depression Screening Interpretation: Negative Thrive Assessment: Date of Thrive Assessment Date Thrive assessed 05/02/24 05/02/24 15:02 Const General: No confusion Orientation/consciousness: No confusion HENMT Head: Yes normocephalic Ears: external ears normal and TM's normal bilaterally Face and sinus: Yes normal facial exam Mouth: moist mucous membranes Throat: Yes tonsils normal Eyes Conjunctivae: conjunctivae normal Pupils: Equal, round and reactive pupils present and Pupil accommodation reflex normal Direct Ophthalmoscopy: normal light reflex Neck Neck: No lymphadenopathy Thyroid: Thyroid normal Chest Chest palpation & inspection: normal inspection of the chest Resp Effort & Inspection: normal respiratory effort and no audible wheezes Auscultation: clear to auscultation bilaterally, no crackles, no wheezes and lung sounds not diminished Cardio Rate: regular rate Rhythm: regular rhythm Peripheral pulses: radial pulses present and dorsalis pedis present GI Palpation (GI): no masses Auscultation: normal bowel sounds and normoactive bowel sounds Rectal Exam - Female: deferred Skin General skin exam: no rashes or lesions noted Rashes: no rashes Neuro General: No confusion Cranial nerves: Yes Equal, round and reactive pupils present and Yes Normal hearing present Cognition (Neuro): normal cognition Gait exam (Neuro): Normal gait present Motor exam (neuro): 5/5 motor strength present throughout Deep tendon reflexes (DTR's): Right brachioradialis reflex intensity grade: 2+, Left brachioradialis reflex intensity grade: 2+, Right patellar reflex intensity grade: 2+ and Left patellar reflex intensity grade: 2+ Extrem General: No edema Immunizations tetanus-diphtheria toxoids-Td 2 Lf unit-2 Lf unit/0.5 mL IM suspension Performing Provider: Vlad Ralph MD Performing Location: [facility] Administered by: LANDON Hartley on 05/02/24 16:13 Dose Route Admin Location Dispensed Lot Number Expiration Date NDC Health And Safety Representative 0.5 mL IM Left Deltoid 0.5 mL [id number] 12/11/24 [address]-7 [employer] VIS Given Date VIS Provided VIS Publication Date 05/02/24 Single Vaccine 21 Eligibility Eligibility Date Funding Source Not [facility] Eligible 05/02/24 State funds Assessment and Plan Assessment & Plan (1) Annual physical exam: Code(s): Z00.00 - Encounter for general adult medical examination without abnormal findings (2) Polycythemia vera: Code(s): D45 - Polycythemia vera Plan: continue with hydroxyurea, seeing hematology. and therapeutic phebotomy (3) Hypertension: Code(s): I10 - Essential (primary) hypertension Qualifiers: Hypertension type: essential hypertension Qualified Code(s): I10 - Essential (primary) hypertension Plan: continue with BP meds (4) Obesity (BMI 30-39.9): Code(s): E66.9 - Obesity, unspecified Plan: keep active and eat healthy (5) Renal calculi: Comment: Bilateral September 2018, April 2020 left renal calculi Code(s): N20.0 - Calculus of kidney Plan: s/p ESWL and CT scan 06/2024 Orders: Orders Td State Immunization Today Z23 - Encounter for immunization Medications: New tirzepatide (weight loss) (Zepbound) 2.5 mg (0.5 mL) subcut QWEEK 2 mL 0RF 4 weeks E66.9 - Obesity, unspecified tetanus-diphtheria toxoids-Td 0.5 mL IM ONCE 0.5 mL 0RF Z23 - Encounter for immunization Coding Level of Care Code Est Pt Prev Care >65y(58328) Diagnoses Annual physical exam Z00.00 Polycythemia vera D45 Essential hypertension I10 Hypertension type: essential hypertension Obesity (BMI 30-39.9) E66.9 Renal calculi N20.0
[2024-05-02 15:51] VITALS: BP 138/80
== END 2024-05-02 16:17 | disposition home or self-care (01) ==
PROVIDERS: PCP Internal Medicine; Visit Provider Internal Medicine
DX: Z00.00 Encounter for general adult medical examination without abnormal findings (principal); E66.9 Obesity, unspecified; Z68.36 Body mass index [BMI] 36.0-36.9, adult; Z23 Encounter for immunization; D45 Polycythemia vera; I10 Essential (primary) hypertension; N20.0 Calculus of kidney
CPT/HCPCS: 90471; 90714; 99397

== ENCOUNTER 2024-06-07 12:49 | Outpatient (REF) | payer MEDICARE, OTHER, SELFPAY | END 2024-06-07 12:50 | disposition home or self-care (01) | LOC: HO.BBR 12:49 | PROVIDERS: PCP Internal Medicine; Visit Provider Internal Medicine Medical Oncology | DX: D75.1 Secondary polycythemia (principal) | CPT/HCPCS: 85018; 99195 ==

== ENCOUNTER 2024-08-08 13:04 | Outpatient (REF) | payer MEDICARE, OTHER, SELFPAY | END 2024-08-08 13:05 | disposition home or self-care (01) | LOC: HO.BBR 13:04 | PROVIDERS: PCP Internal Medicine; Visit Provider Internal Medicine Medical Oncology | DX: D45 Polycythemia vera (principal) | CPT/HCPCS: 85018; 99195 ==

== ENCOUNTER 2024-09-12 13:28 | Outpatient (AMB) | payer MEDICARE, OTHER, SELFPAY ==
[2024-09-12 13:31] VITALS: BP 140/86; PULSE 96; O2SAT 98; BMI 36.5
--- NOTE | 2024-09-12 13:31 | A.OFFPC_ITS ---
Vital Signs 09/12/24 13:31 Height 5 ft 1 in Weight 193 lb 0.8 oz BMI 36.5 BP 140/86 H Blood Pressure Location Lt brachial Position Sitting Pulse 96 Pulse Source Pulse Oximeter Pulse Oximetry (%) 98 Oxygen Delivery Method Room Air Intake Visit Reasons: Obesity, PV Allergies hydrochlorothiazide [HYDROCHLOROTHIAZIDE] Allergy (Intermediate, Verified 09/12/24 13:35) SEVERE CRAMPING metoprolol Allergy (Unknown, Verified 09/12/24 13:35) Muscle aches morphine [MORPHINE] Allergy (Unknown, Verified 09/12/24 13:35) Nausea and Vomiting oxycodone [From PERCODAN] Allergy (Unknown, Verified 09/12/24 13:35) Unknown Seasonal Allergies Allergy (Unknown, Verified 09/12/24 13:35) Itchy Eyes hydrochloride Allergy (Mild, Uncoded 09/12/24 13:35) Stomach Upset Tobacco use date assessed: 05/02/24 Fall risk assessment: No Falls in past year Last assessed Fall Risk: 09/12/24 Dental Screening Dental Screen Date: 05/02/24 HPI Obesity, PV HPI Details 84-year-old obese female with polycythem ia vera, hypertension, nephrolithiasis coming in for follow-up. Last seen for physical in May 2024. Patient is due for a bone density. Patient continues to follow-up with the Hematology-Oncology having therapeutic phlebotomy periodically. Patient does have a history of breast cancer had mastectomy with implants in 1978 had implant rupture. Patient follows up with urology seen in June 2024 had ESWL for right lower pole renal calculi January 2024. BP a little high today and advised to check BP at home having a lot of remodeling of house. eating better. complains of lower back PFSH Medical History (Updated 09/12/24 @ 19:07 by Vlad Ralph MD) Mammogram declined Osteopenia Diaphragmatic hernia Renal calculi Cervical spondylosis Allergic rhinitis Vitamin D deficiency Tubular adenoma of colon Hypertension Erythrocytosis Surgical History Vaginal cyst History of cataract surgery S/P CLARISSA-BSO (total abdominal hysterectomy and bilateral salpingo-oophorectomy) History of appendectomy History of reconstruction of both breasts Family History Father Lung cancer Brother Lung cancer COPD (chronic obstructive pulmonary disease) Diabetes Daughter HTN (hypertension) Stroke Social History Household Members: None Housing: House Are you a primary career technical education teacher to a significant other at home: No Do you presently have visiting nurse or other home services: No Alcohol intake: never Patient Tobacco Use Status: Never used Tobacco e-Cigarette/Vaping Use: Never Used Second Hand Smoke Exposure: No service: No Current occupational status: retired Cognitive needs: No Hearing needs: No Vision needs: Yes Questionnaire Thrive Questionnaire Date Thrive assessed: 05/02/24 AUDIT C Alcohol Use Questionnaire (AUDIT-C) 1. How often do you have a drink containing alcohol?: Never 3. How often do you have six or more drinks on one occasion?: Never Total Score: 0 ANAMARIA-7 AMB Questionnaire ANAMARIA-7 Date ANAMARIA - 7 assessed: 05/02/24 Source: Developed by Drs. Pola Vargas, Theresa Glover, Anirudh Voss and colleagues, with an educational sujata from [employer]. Physical exam (Primary Care) Vital Signs: Last Vital Signs Pulse 96 09/12/24 13:31 BP 140/86 H 09/12/24 13:31 Pulse Ox 98 09/12/24 13:31 Oxygen Delivery Method Room Air 09/12/24 13:31 BMI result Body Mass Index 36.5 Tobacco/Smoking Status: Tobacco use Status Tobacco use date assessed 05/02/24 09/12/24 13:32 Patient Tobacco Use Status Never used Tobacco 09/12/24 13:32 e-Cigarette/Vaping Use Never Used 09/12/24 13:32 Thrive Assessment: Date of Thrive Assessment Date Thrive assessed 05/02/24 09/12/24 13:32 Const General: alert; No acute distress Eyes Conjunctivae: conjunctivae normal Resp Auscultation: clear to auscultation bilaterally Cardio Rate: regular rate Rhythm: regular rhythm GI Inspection: Yes normal to inspection Extrem General: Yes normal to inspection and No edema Office Procedures Flu Questionnaire Does the patient have a severe egg allergy?: No Does the patient have severe life threatening allergies?: No Does the patient have a fever or illness today?: No Has the patient ever had Guillain-Woodworth Syndrome?: No Has the patient ever had any past reaction to a flu shot?: No Immunizations Fluarix Triv [id number] (PF) 45 mcg (15 mcg x 3)/0.5 mL IM syringe Performing Provider: Vlad Ralph MD Performing Location: [facility] Administered by: LANDON Riley on 09/12/24 13:39 Dose Route Admin Location Dispensed Lot Number Expiration Date NDC Behavioral Health Specialist 0.5 mL IM Left Deltoid 0.5 mL [id number] 04/30/25 [id number] Expert Medical Navigation VIS Given Date VIS Provided VIS Publication Date 09/12/24 Single Vaccine 21 Eligibility Eligibility Date Funding Source Not [facility] Eligible 09/12/24 Private Coding Level of Care Code Est Pt Level 4 (99563) Diagnoses Renal calculi N20.0 Obesity (BMI 30-39.9) E66.9 Polycythemia vera D45 Essential hypertension I10 Hypertension type: essential hypertension Osteopenia, unspecified location M85.80 Osteopenia location: unspecified Assessment & Plan Assessment & Plan (1) Renal calculi: Comment: Bilateral September 2018, April 2020 left renal calculi Code(s): N20.0 - Calculus of kidney Category: Medical Plan: Keep well hydrated patient continue to follow-up with urology and requesting ultrasound yearly. (2) Obesity (BMI 30-39.9): Code(s): E66.9 - Obesity, unspecified Category: Medical Plan: Diet and exercise (3) Polycythemia vera: Code(s): D45 - Polycythemia vera Category: Medical Plan: Patient continue to be followed up by hematology oncology on therapeutic phlebotomy every 3 months now (4) Hypertension: Code(s): I10 - Essential (primary) hypertension Category: Medical Qualifiers: Hypertension type: essential hypertension Qualified Code(s): I10 - Essential (primary) hypertension Plan: Continue with blood pressure medication. Decrease salt intake and exercise presently on amlodipine valsartan 10/320 mg once a day (5) Osteopenia: Comment: August 2008 Code(s): M85.80 - Other specified disorders of bone density and structure, unspecified site Category: Medical Qualifiers: Osteopenia location: unspecified Qualified Code(s): M85.80 - Other specified disorders of bone density and structure, unspecified site Plan: Bone density requested Orders: Orders Influenza [id number] Immunization Today Z23 - Encounter for immunization XR DEXA axial skeleton Today M81.0 - Age-related osteoporosis without current pathological fracture, M85.80 - Other specified disorders of bone density and structure, unspecified site
== END 2024-09-12 14:07 | disposition home or self-care (01) ==
PROVIDERS: PCP Internal Medicine; Visit Provider Internal Medicine
DX: N20.0 Calculus of kidney (principal); D45 Polycythemia vera; E66.9 Obesity, unspecified; Z68.36 Body mass index [BMI] 36.0-36.9, adult; I10 Essential (primary) hypertension; M85.80 Other specified disorders of bone density and structure, unspecified site

== ENCOUNTER → 2024-09-12 13:28 | Outpatient (BNVA) | payer MEDICARE, OTHER, SELFPAY | PROVIDERS: PCP Internal Medicine; Visit Provider Internal Medicine | DX: Z23 Encounter for immunization (principal); N20.0 Calculus of kidney; E66.9 Obesity, unspecified; D45 Polycythemia vera; I10 Essential (primary) hypertension; M85.80 Other specified disorders of bone density and structure, unspecified site | CPT/HCPCS: 90471; 90656; 99212 ==

== ENCOUNTER 2024-10-20 14:12 | Outpatient (REF) | payer MEDICARE, OTHER, SELFPAY ==
--- NOTE | ~2024-10-20 | MM_ITS ---
EXAMINATION: BONE DENSITOMETRY CLINICAL INDICATION: Age-related osteoporosis without current pathological fracture. COMPARISON: Previous BD dated 08/02/2020 and baseline BD dated 08/06/2008. TECHNIQUE: Using a [employer] DXA System (software version: 13.1) manufactured by [employer], dual-energy x-ray absorptiometry was performed of the lumbar spine and left hip. The images are of good technical quality. Summary results are attached. FINDINGS: LEFT FEMUR, NECK: Current: BMD 0.977 g/cm2, Z-score 1.3, T-score -0.4, normal. Prior: BMD 0.868 g/cm2. Baseline: BMD 0.873 g/cm2. LEFT FEMUR, TOTAL: Current: BMD 1.056 g/cm2, Z-score 2.0, T-score 0.4, normal, 3.0% increase from previous, 0.8% increase from baseline (<5% change is not significant). Prior: BMD 1.025 g/cm2. Baseline: BMD 1.048 g/cm2. AP SPINE L1-L2 (excluding L3 and L4): The data of L1-L4 has been changed to exclude the L3 and L4 vertebral bodies, because significant degenerative change at these levels may cause overestimation of lumbar spine density. Current: BMD 0.849 g/cm2, Z-score -1.6, T-score -2.6, osteoporosis, 6.6% decrease from previous, 0.8% decrease from baseline (<5% change is not significant). Prior: BMD 0.909 g/cm2. Baseline: BMD 0.856 g/cm2. IDENTIFIED RISK FACTORS: Early menopause, secondary osteoporosis, height loss, hysterectomy, bilateral oophorectomy. HISTORY OF FRACTURE: None listed. MEDICATIONS: Calcium supplements or multivitamin, vitamin D. MM/XR DEXA axial skeleton IMPRESSION: 1. DIAGNOSIS: Osteoporosis based on the lowest T-score value of -2.6 in the lumbar spine applying World Health Organization criteria. 2. 10-YEAR FRACTURE RISK PREDICTION, FRAX: According to the guidelines, FRAX calculation should only be performed on patients in the osteopenia bone density category. Therefore, FRAX was not performed on this patient. 3. Treatment Recommendations: NOF guidelines recommend consideration for treatment in postmenopausal women and men age 50 and older presenting with the following: -A hip or vertebral (clinical or morphometric) fracture. -T-score less than or equal to -2.5 at the femoral neck or spine after appropriate evaluation to exclude secondary causes. -Low bone mass at the hip or spine and a 10-year fracture probability by FRAX of greater than or equal to 3% for hip fracture or greater than or equal to 20% for major osteoporotic fracture based on the [place] adapted WHO algorithm. 4. Other Recommendations: All treatment decisions require clinical judgment and consideration of individual patient factors, including patient preferences, comorbidities, previous drug use, risk factors not captured in the FRAX model (e.g. frailty, falls, vitamin D deficiency, increased bone turnover, interval significant decline in bone density) and possible under or overestimation of fracture risk by FRAX. Additional medical evaluation for secondary cause of low bone mineral density may be appropriate. FUTURE SCAN RECOMMENDATION: People with diagnosed cases of osteoporosis or at high risk for fracture should have regular bone mineral density tests. For patients eligible for Medicare, routine testing is allowed once every 2 years. The testing frequency can be increased to one year for patients who have rapidly progressing disease, those who are receiving or discontinuing medical therapy to restore bone mass, or have additional risk factors. Electronically signed by: Jessica Gordon MD 10/20/2024 04:48 PM [facility] MORROW
== END 2024-10-20 14:13 | disposition home or self-care (01) ==
LOC: HO.MAMMO 14:12
PROVIDERS: PCP Internal Medicine; Visit Provider Internal Medicine
DX: M81.0 Age-related osteoporosis without current pathological fracture (principal); M85.80 Other specified disorders of bone density and structure, unspecified site
CPT/HCPCS: 77080

== ENCOUNTER 2024-11-16 12:51 | Outpatient (REF) | payer MEDICARE, OTHER, SELFPAY | END 2024-11-16 12:52 | disposition home or self-care (01) | LOC: HO.BBR 12:51 | PROVIDERS: PCP Internal Medicine; Visit Provider Internal Medicine Medical Oncology | DX: D45 Polycythemia vera (principal) | CPT/HCPCS: 85018; 99195 ==

== ENCOUNTER 2025-02-14 12:48 | Outpatient (REF) | payer MEDICARE, OTHER, SELFPAY ==
--- OUTSIDE RECORDS SUMMARY | 2025-02-14 15:10 | XMS_ITS | Clinical Summary ---
Author Organization [facility] Address [address] [place] [address] Care Team Providers Care Manager Discovery Name Role Phone Unavailable Primary Care Provider Unavailabl e Allergies Active Allergy Reactions Criticality Noted Date Comments Morphine 11/26/2020 Immunizations Name Administration Dates Next Due Covid-19 (Pfizer) Dilution Required 12/27/2020,0 11/26/2020 Social History Tobacco Use Types Packs/Day Years Used Date Smoking Tobacco: Never Assessed Sex and Gender Information Value Date Recorded Sex Assigned at Female 11/26/2020 11:22 AM EST Gender Identity Not on file Sexual Orientation Not on file Plan of Treatment Health Maintenance Due Date Last Done Comments Depression Screening 1953 Preventative Health Evaluation 1959 DTap / Tdap / Td (1 - Tdap) 1960 Shingrix-Zoster Vaccine (1 o f 2) 1991 Fall Risk Assessment 2006 Osteoporosis Screening (DEXA Scan) 2006 Pneumococcal Vaccine (1 of 1 - PCV) 2006 RSV Adult > 60+ Yrs or (1 - 1-dose 75+ series) 2016 COVID-19 Vaccine (3 - 2023-2 5 season) 2024 12/27/2020, 11/26/2020 Influenza Vaccine (#1) 2024 Hepatitis B Vaccines Aged Out No long er eligible based on patient's age to complete this topic RSV Ped < 20 months Aged Out No longe r eligible based on patient's age to complete this topic
== END 2025-02-14 12:49 | disposition home or self-care (01) ==
LOC: HO.BBR 12:48
PROVIDERS: Visit Provider Internal Medicine Medical Oncology
DX: D45 Polycythemia vera (principal)
CPT/HCPCS: 85014; 85018; 99195

== ENCOUNTER 2025-02-26 14:46 | Outpatient (AMB) | payer MEDICARE, OTHER, SELFPAY ==
--- NOTE | 2025-02-26 14:52 | A.OFFVIS_ITS ---
Vital Signs 02/26/25 14:54 Height 5 ft 1.69 in Weight 178 lb 12.718 oz BMI 33.0 BP 116/68 Blood Pressure Location Rt brachial Position Sitting Pulse 108 H Pulse Source Pulse Oximeter Pulse Oximetry (%) 96 Oxygen Delivery Method Room Air Intake Visit Reasons: Osteoporosis Intake Note: New patient referred by Dr. Schwartz for Osteoporosis. Warehouse Order Selector Required: No Accompanied by: Self / Same As Patient Allergies hydrochlorothiazide [HYDROCHLOROTHIAZIDE] Allergy (Intermediate, Verified 14:55) SEVERE CRAMPING metoprolol Allergy (Unknown, Verified 02/26/25 14:55) Muscle aches morphine [MORPHINE] Allergy (Unknown, Verified 02/26/25 14:55) Nausea and Vomiting oxycodone [From PERCODAN] Allergy (Unknown, Verified 02/26/25 14:55) Unknown Seasonal Allergies Allergy (Unknown, Verified 02/26/25 14:55) Itchy Eyes hydrochloride Allergy (Mild, Uncoded 02/26/25 14:55) Stomach Upset Medication List - Last Reconciled 02/26/25 by Pola Byers MD amlodipine-valsartan 10-320 mg 1 tab PO DAILY aspirin 81 mg PO DAILY cholecalciferol (vitamin D3) (Vitamin D3) 25 mcg PO DAILY multivitamin 1 tab PO DAILY HPI Comments Details: The patient is an 84-year-old female presenting with osteoporosis management. Her osteoporosis diagnosis followed from a bone density scan carried out last October, revealing progression from osteopenia established previously. She has not undertaken any osteoporotic treatment to date, with no noted fractures in the hip or spine. Her medical history indicates diagnosed polycythemia vera, managed with aspirin under Dr. Marquez's oversight. She underwent a hysterectomy with bilateral oophorectomy at 36 years to address uncontrollable uterine bleeding tied to fibrocystic breast disease, avoiding subsequent hormone replacement therapy. A history of kidney stones is recorded, with recent intervention around December 2023 to address significant stone formation. Initial diagnostics regarding her kidney condition, including a prospective 24-hour urine collection, has not occurred for over 25 years. The osteoporosis does not manifest with acute symptoms other than minimal soreness on extended standing which the patient manages with ieqv-sly-xojdxic Tylenol. She does not engage in weight-bearing exercises and reports a reduction in height from 5'2 down to 5'1 , illustrating potential disease advancement. Heightened concerns regarding fracture risks and future loss of mobility have prompted proactive measures for preventative osteoporosis management. First diagnosed in recently . Never Received treatment in the past No history of pathologic fracture or ONJ. Has several servings of dietary calcium per day in the form of milk, broccoli , yogurt , ice cream . Takes Calcium supplement ? mg daily in divided doses. Takes ? IU of Vitamin D daily in MVI .The patient maintains a diet that includes high calcium-rich foods. She drinks half gallons of milk regularly, consumes broccoli, yogurt, mozzarella cheese, and occasionally enjoys ice cream. Oranges are her favorite fruit. She supplements her diet with a multivitamin daily and has a nutrition shake at breakfast. The patient ensures adequate water intake for hydration. Denies ever using PPI, anticoagulant, antiepileptic or glucocorticoid medication. Not Does weight bearing exercise days per week Fracture history: No Height loss: [employer] history: Menarche at age 13- hysterecomy at age 36 - no ERT Has history of Kidney stones: Denies family history of Osteoporosis or hip fracture. UTD on dental cleanings and sees dentist every 6 months. No planned upcoming dental work or extractions. No tabacco use or ETOH abuse DXA dated 10/20/24 :AP SPINE L1-L2 (excluding L3 and L4): The data of L1-L4 has been changed to exclude the L3 and L4 vertebral bodies, because significant degenerative change at these levels may cause overestimation of lumbar spine density. Current: BMD 0.849 g/cm2, Z-score -1.6, T-score -2.6, osteoporosis, 6.6% decrease from previous, 0.8% decrease from baseline (<5% change is not significant). Prior: BMD 0.909 g/cm2. Baseline: BMD 0.856 g/cm2. IDENTIFIED RISK FACTORS: Early menopause, secondary osteoporosis, height loss, hysterectomy, bilateral oophorectomy. HISTORY OF FRACTURE: None listed. MEDICATIONS: Calcium supplements or multivitamin, vitamin D. MM/XR DEXA axial skeleton IMPRESSION: 1. DIAGNOSIS: Osteoporosis based on the lowest T-score value of -2.6 in the lumbar spine applying World Health Organization criteria. Labs: [facility] Medical History Mammogram declined Osteopenia Diaphragmatic hernia Renal calculi Cervical spondylosis Allergic rhinitis Vitamin D deficiency Tubular adenoma of colon Hypertension Erythrocytosis Surgical History Vaginal cyst History of cataract surgery S/P CLARISSA-BSO (total abdominal hysterectomy and bilateral salpingo-oophorectomy) History of appendectomy History of reconstruction of both breasts Family History Father Lung cancer Brother Lung cancer COPD (chronic obstructive pulmonary disease) Diabetes Daughter HTN (hypertension) Stroke Social History Household Members: None Housing: House Are you a primary hemodialysis patient care specialist to a significant other at home: No Do you presently have visiting nurse or other home services: No Alcohol intake: never Patient Tobacco Use Status: Never used Tobacco e-Cigarette/Vaping Use: Never Used Second Hand Smoke Exposure: No service: No Current occupational status: retired Cognitive needs: No Hearing needs: No Vision needs: Yes Physical Exam There are no Cushingoid features. Absence of blue sclera. Absence of kyphosis. Thyroid gland is of nl size and weighs 15 gms. There are no thyroid nodules palpated. Lungs CTA. Heart S1 S2 Reg R/R Abdominal exam benign. Muscle strength 5/5 . Examination of spine reveals absence of tenderness on palpation Assessment & Plan Assessment & Plan (1) Osteopenia: Comment: August 2008 Code(s): M85.80 - Other specified disorders of bone density and structure, unspecified site Category: Medical Qualifiers: Osteopenia location: unspecified Qualified Code(s): M85.80 - Other specified disorders of bone density and structure, unspecified site Plan: This 84-year-old white female with a history of newly diagnosed borderline osteoporosis with partial secondary workup negative Plan is to complete the secondary workup by checking a phosphorus level, 24 hour urine for calcium and creatinine. We will continue vitamin-D supplementation ensure 1200 mg of calcium per day. Assuming secondary workup is negative, could consider use of anti resorptive agent like oral or intravenous bisphosphonate. 1. Osteoporosis The patient's osteoporosis is indicated by a T-score of -2.6. The plan includes ensuring calcium and Vitamin D intake adequacy, performing a 24-hour urine calcium test, and discussing potential Fosamax (Alendronate) therapy in future visits. Light weight-bearing exercises and fall prevention measures are recommended. 2. History of Kidney Stones The patient experienced previous intervention for kidney stones. It is essential to perform a 24-hour urine calcium test to evaluate for hypercalciuria, con tributing to those stones and osteoporosis. During the visit, discussions with the patient focused on osteoporosis' clinical management, emphasizing preventative care to avert fractures. I discussed the necessity of a sufficient daily intake of calcium (1200 mg) and Vitamin D, encouraging dietary fulfillment first before supplements. The option of light weight-bearing exercise was introduced to benefit bone health, and home safety was addressed to prevent falls. Due to previous kidney stones, a 24-hour urine calcium test was advised to evaluate calcium excretion and rule out hypercalciuria as a contributor to both stone formation and osteoporosis. The possibility of Fosamax was discussed for future consideration, explaining its role to stabilize and potentially increase bone density, while discussing risks and benefits. Follow-up care and the return visit in four months were discussed to reassess the osteoporosis management plan. - Ensure a daily intake of 1200 mg calcium either through diet or supplements. - Continue Vitamin D supplementation. - Schedule a 24-hour urine calcium test within the next three months. - Engage in light weight-bearing exercises to strengthen bones. - Improve home safety to prevent falls, especially ensuring adequate lighting around stairs and keeping floors free of clutter. - Return in four months for a follow-up visit. The patient had an opportunity to ask questions regarding treatment plan. The patient expressed understanding and agreement with the above treatment plan. Patient was informed and verbally consented to the use of an ambient scribe for clinic note documentation during this visit. Orders: Orders Phosphorus Today M85.80 - Other specified disorders of bone density and structure, unspecified site Calcium, 24 Hr Ur Today M85.80 - Other specified disorders of bone density and structure, unspecified site Creatinine, 24 Hr Group Today M85.80 - Other specified disorders of bone density and structure, unspecified site Coding Level of Care Code New Pt Level 4 (38026) Diagnoses Osteopenia, unspecified location M85.80 Osteopenia location: unspecified
[2025-02-26 14:54] VITALS: BP 116/68; PULSE 108; O2SAT 96; BMI 33.0
--- OUTSIDE RECORDS SUMMARY | 2025-02-26 17:35 | XMS_ITS | Clinical Summary ---
Author Organization [facility] Address [address] [place] [address] Care Team Providers Care Interpersonal Communications Professor Name Role Phone Unavailable Primary Care Provider [...]
== END 2025-02-26 15:26 | disposition home or self-care (01) ==
LOC: HO.ENCR 14:47
PROVIDERS: PCP Internal Medicine; Visit Provider Internal Medicine Endocrinology, Diabetes & Metabolism
DX: M85.80 Other specified disorders of bone density and structure, unspecified site (principal)
CPT/HCPCS: 99204

== ENCOUNTER → 2025-02-26 14:46 | Outpatient (BNVA) | payer MEDICARE, OTHER, SELFPAY | PROVIDERS: PCP Internal Medicine; Visit Provider Internal Medicine Endocrinology, Diabetes & Metabolism | DX: M85.80 Other specified disorders of bone density and structure, unspecified site (principal) | CPT/HCPCS: 99202 ==

== ENCOUNTER 2025-03-12 12:45 | Outpatient (AMB) | payer MEDICARE, OTHER, SELFPAY ==
--- NOTE | 2025-03-12 12:55 | MHC.PC.OV ---
Vital Signs 03/12/25 13:03 03/12/25 13:40 Height 5 ft 1.69 in Weight 194 lb BMI 35.8 BP 160/86 H 134/80 Blood Pressure Location Lt brachial Lt brachial Position Sitting Sitting Pulse 104 H Pulse Source Pulse Oximeter Temp 97.1 F Temp Source Temporal Artery Scan Pulse Oximetry (%) 95 Oxygen Delivery Method Room Air Intake Visit Reasons: PE Market Research Specialist Required: No Accompanied by: Self / Same As Patient Allergies hydrochlorothiazide [HYDROCHLOROTHIAZIDE] Allergy (Intermediate, Verified 03/12/25 12:56) SEVERE CRAMPING metoprolol Allergy (Unknown, Verified 03/12/25 12:56) Muscle aches morphine [MORPHINE] Allergy (Unknown, Verified 03/12/25 12:56) Nausea and Vomiting oxycodone [From PERCODAN] Allergy (Unknown, Verified 03/12/25 12:56) Unknown Seasonal Allergies Allergy (Unknown, Verified 03/12/25 12:56) Itchy Eyes hydrochloride Allergy (Mild, Uncoded 03/12/25 12:56) Stomach Upset Medication List - Last Reconciled 03/12/25 by Vlad Ralph MD amlodipine-valsartan 10-320 mg 1 tab PO DAILY aspirin 81 mg PO DAILY cholecalciferol (vitamin D3) (Vitamin D3) 25 mcg PO DAILY multivitamin 1 tab PO DAILY Tobacco use date assessed: 03/12/25 Fall risk assessment: No Falls in past year Last assessed Fall Risk: 03/12/25 Dental Screening Dental Screen Date: 03/12/25 Did you have a dental visit in the last 12 months?: Yes Did you have a dental problem in the last 6 months where you did not have access to dental care?: No Was dental information given to patient?: Patient has dentist [facility] Medical History (Updated 03/12/25 @ 13:37 by Vlad Ralph MD) Osteopenia Mammogram declined Diaphragmatic hernia Renal calculi Cervical spondylosis Allergic rhinitis Vitamin D deficiency Tubular adenoma of colon Hypertension Erythrocytosis Surgical History Vaginal cyst History of cataract surgery S/P CLARISSA-BSO (total abdominal hysterectomy and bilateral salpingo-oophorectomy) History of appendectomy History of reconstruction of both breasts Family History Father Lung cancer Brother Lung cancer COPD (chronic obstructive pulmonary disease) Diabetes Daughter HTN (hypertension) Stroke Social History (Reviewed 02/26/25 @ 14:55 by Yaritza Warner [facility]) Household Members: None Housing: House Are you a primary daycare manager to a significant other at home: No Do you presently have visiting nurse or other home services: No Alcohol intake: never Patient Tobacco Use Status: Never used Tobacco e-Cigarette/Vaping Use: Never Used Second Hand Smoke Exposure: No service: No Current occupational status: retired Cognitive needs: No Hearing needs: No Vision needs: Yes Questionnaire PHQ-9 Over the last 2 weeks, how often have you been bothered by any of the following problems? 1. Little interest or pleasure in doing things: not at all 2. Feeling down, depressed, or hopeless: not at all 3. Trouble falling or staying asleep, or sleeping too much: not at all 4. Feeling tired or having little energy: not at all 5. Poor appetite or overeating: not at all 6. Feeling bad about yourself - or that you are a failure or have let yourself or your family down: not at all 7. Trouble concentrating on things, such as reading the newspaper or watching television: not at all 8. Moving or speaking so slowly that other people could have noticed. Or the opposite - being so fidgety or restless that you have been moving around a lot more than usual: not at all 9. Thoughts that you would be better off or of hurting yourself in some way: not at all Total score: 0 Depression Screening Interpretation: Negative Depression Screening Done: Yes 45151 - PHQ-9 Billing: Yes Source: Developed by Drs. Pola Vargas, Theresa Glover, Anirudh Voss and colleagues, with an educational sujata from [employer]. Thrive Questionnaire Date Thrive assessed: 03/12/25 I am a: Patient What is your living situation today?: I have a steady place to live Within the past 12 months, did the food you bought not last and you didn't have the money to get more?: I choose not to answer this question Within the past 12 months, did you worry whether your food would run out before you got money to buy more?: I choose not to answer this question Do you have trouble paying for medicines?: No Do you have trouble getting transportation to medical appointments?: No Do you have trouble paying your heating and electricity bill?: No Do you have trouble taking care of your child, family member or friend?: I choose not to answer this question Do you have trouble with day-to-day activities such as bathing, preparing meals, shopping, managing finances, etc.?: No Are you currently unemployed and looking for a job?: No Are you interested in more education?: No Please select the resources that you would like help with: None Currently or been in a relationship where the following occur: I choose not to answer THRIVE Score: 0 AUDIT C Alcohol Use Questionnaire (AUDIT-C) 1. How often do you have a drink containing alcohol?: Never 3. How often do you have six or more drinks on one occasion?: Never Total Score: 0 Score Reviewed/Action Taken: No ANAMARIA-7 AMB Questionnaire ANAMARIA-7 Date ANAMARIA - 7 assessed: 03/12/25 Feeling nervous, anxious, or on edge: 0 = Not at all Not being able to stop or control worryin = Not at all Worrying too much about different things: 0 = Not at all Trouble relaxin = Not at all Being so restless that it is hard to sit still: 0 = Not at all Becoming easily annoyed or irritable: 0 = Not at all Feeling afraid as if something awful might happen: 0 = Not at all Total ANAMARIA-7 score (0-4 normal; 5-9 mild; 10-14 moderate; 15-21 severe): 0 Source: Developed by Drs. Pola Vargas, Theresa Glover, Anirudh Voss and colleagues, with an educational sujata from [employer]. ANAMARIA-7 Assessment Billing ANAMARIA-7 Assessment Tool: ANAMARIA-7 Assessment 15512 Review of Systems Const Denies poor appetite and Denies weakness Eyes Denies no additional complaints ENT Reports Normal hearing present, Denies dizziness, Denies nasal congestion, Denies tinnitus and Denies sore throat Card Denies chest pain, Denies syncope, Denies rapid heart rate and Denies dyspnea Resp Denies cough and Denies dyspnea GI Denies change in stool character, Reports constipation, Denies diarrhea, Denies nausea and Denies vomiting Denies urinary frequency, Denies difficulty voiding and Denies dysuria Neuro Reports Normal hearing present, Denies confusion, Denies dizziness, Denies syncope and Denies weakness Psych Denies confusion Physical exam (Primary Care) Vital Signs: Last Vital Signs Temp 97.1 F 03/12/25 13:03 Pulse 104 H 03/12/25 13:03 BP 134/80 03/12/25 13:40 Pulse Ox 95 03/12/25 13:03 Oxygen Delivery Method Room Air 03/12/25 13:03 BMI result Body Mass Index 35.8 Tobacco/Smoking Status: Tobacco use Status Tobacco use date assessed 03/12/25 03/12/25 12:58 Patient Tobacco Use Status Never used Tobacco 03/12/25 12:58 e-Cigarette/Vaping Use Never Used 03/12/25 12:58 PHQ-9: PHQ-9 Score PHQ-9: Total score 0 03/12/25 13:37 Depression Screening Interpretation: Negative Thrive Assessment: Date of Thrive Assessment Date Thrive assessed 03/12/25 03/12/25 12:58 Currently or been in a relationship where the following occur: I choose not to answer Const General: No confusion Orientation/consciousness: No confusion HENMT Head: Yes normocephalic Ears: external ears normal and TM's normal bilaterally Face and sinus: Yes normal facial exam Mouth: moist mucous membranes Throat: Yes tonsils normal Eyes Conjunctivae: conjunctivae normal Pupils: Equal, round and reactive pupils present and Pupil accommodation reflex normal Direct Ophthalmoscopy: normal light reflex Neck Neck: No lymphadenopathy Thyroid: Thyroid normal Chest Chest palpation & inspection: normal inspection of the chest Resp Effort & Inspection: normal respiratory effort and no audible wheezes Auscultation: clear to auscultation bilaterally, no crackles, no wheezes and lung sounds not diminished Cardio Rate: regular rate Rhythm: regular rhythm Peripheral pulses: radial pulses present and dorsalis pedis present GI Palpation (GI): no masses Auscultation: normal bowel sounds and normoactive bowel sounds Rectal Exam - Female: deferred Skin General skin exam: no rashes or lesions noted Rashes: no rashes Neuro General: No confusion Cranial nerves: Yes Equal, round and reactive pupils present and Yes Normal hearing present Cognition (Neuro): normal cognition Gait exam (Neuro): Normal gait present Motor exam (neuro): 5/5 motor strength present throughout Deep tendon reflexes (DTR's): Right brachioradialis reflex intensity grade: 2+, Left brachioradialis reflex intensity grade: 2+, Right patellar reflex intensity grade: 2+ and Left patellar reflex intensity grade: 2+ Extrem General: No edema Coding Level of Care Code Est Pt Prev Care >65y(20164) Diagnoses Annual physical exam Z00.00 Essential hypertension I10 Hypertension type: essential hypertension Polycythemia vera D45 Obesity (BMI 30-39.9) E66.9 Osteoporosis M81.0 Additional Codes ANAMARIA-7 Assessment Billing - ANAMARIA-7 Assessment Tool: ANAMARIA-7 Assessment 31584 ([id number]) PHQ-9 - 23214 - PHQ-9 Billing: Yes ([id number]) Assessment & Plan Assessment & Plan (1) Annual physical exam: Code(s): Z00.00 - Encounter for general adult medical examination without abnormal findings Category: Medical Plan: Patient is advised to eat healthy, keep well hydrated, keep active and have adequate sleep. (2) Hypertension: Code(s): I10 - Essential (primary) hypertension Category: Medical Qualifiers: Hypertension type: essential hypertension Qualified Code(s): I10 - Essential (primary) hypertension Plan: Continue with blood pressure medication. Decrease salt intake and exercise on amlodipine valsartan 10/320 mg once a day (3) Polycythemia vera: Code(s): D45 - Polycythemia vera Category: Medical Plan: Continue to follow-up with Hematology-Oncology patient on therapeutic phlebotomy keeping hemoglobin at 15-16 (4) Obesity (BMI 30-39.9): Code(s): E66.9 - Obesity, unspecified Category: Medical Plan: Diet and exercise (5) Osteoporosis: Comment: October 2024 Code(s): M81.0 - Age-related osteoporosis without current pathological fracture Category: Medical Plan: Discussed about calcium and vitamin-D and being evaluated by Endocrinology Plan History of Present Illness The patient is an 84-year-old female presenting for a wellness visit and physical examination. She has ongoing management for polycythemia vera, regularly undergoing therapeutic phlebotomy to maintain target hemoglobin levels, and follows up with hematology. Her essential hypertension is controlled with amlodipine and valsartan daily. 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 Additionally, she is dealing with obesity, with a recent increase in weight. Despite these chronic issues, she reports no acute symptoms such as dizziness or chest pain and maintains consistent follow-up care for her conditions. Health Maintenance - Therapeutic phlebotomy for polycythemia vera every three months - Daily supplements of calcium and vitamin D for osteopenia - Maintenance of blood pressure with amlodipine and valsartan 10/320 mg - Last bone density screening in October 2024 - Last cholesterol test in April 2024, LDL 123 mg/dL - Recommended shingles vaccination completion - Pneumonia vaccination complete - Encouraged a diet and exercise plan for obesity management Social History - Does not consume alcohol regularly; had a Diet Coke during a social event - Denial of cigarette use - Lives independently with recent home renovations for accessibility; new stairs and deck installed - Participates actively in family activities, including babysitting grandchildren - Engages in healthy eating habits adhering to a list for calcium-rich foods Review of Systems - Cardiovascular: Denies chest pain, shortness of breath - Respiratory: Denies difficulty breathing - Gastrointestinal: Denies nausea, vomiting, dysphagia - Neurological: Denies dizziness, syncope - Musculoskeletal: Reports osteopenia - Hematological: Reports polycythemia vera Physical Exam General: Cooperative, healthy appearing, comfortable, no acute distress and well developed Orientation: Patient oriented x3 Limitations: No limitations Head: Normal to inspection Ears: Hearing great, some ear wax present, psoriasis noted Nose: Normal external nose present Face and sinus: Normal facial exam Eyes: Appearance normal, both eyes and all related structures Neck: Normal visual inspection and Yes full ROM Respiratory: Normal respiratory effort and able to speak in complete sentences. Clear to auscultation bilaterally Cardiovascular: Regular rate and rhythm. Normal S1 and S2 GI: Normal to inspection. Soft to palpation and nontender Skin: No rashes or lesions noted Neuro: Patient oriented x3 Extremities: Normal to inspection Results - Labs: Hemoglobin 15.6 g/dL, cholesterol (LDL 123 mg/dL), blood glucose 104 mg/dL - Electrolytes: Normal sodium, potassium levels; calcium slightly elevated at 10.4 mg/dL Plan The patient will continue her therapeutic phlebotomy for polycythemia vera to maintain specific hemoglobin levels and will follow up every three months. Her essential hypertension will continue to be managed with amlodipine and valsartan 10/320 mg daily. For osteopenia, she will remain on calcium and vitamin D supplements, with teacher learning disabled follow-up. Weight management strategies were discussed, emphasizing diet and exercise to manage obesity. Recommendation for completing shingles vaccination was reinforced, with monitoring of cholesterol levels advised. Annual fasting blood tests are suggested for thyroid function monitoring. Patient was informed and verbally consented to the use of an ambient scribe for clinic note documentation during this visit. Discussion Notes During today's visit, I reviewed the patient's management plan for polycythemia vera, essential hypertension, and osteopenia. I discussed the importance of maintaining her medication regimen and therapeutic phlebotomy schedule. We discussed her recent weight gain and reinforced dietary modifications, vitamin D intake, and exercise. Shingles vaccination and regular monitoring of cholesterol levels were reinforced. She was encouraged to continue her appointments with hematology and endocrinology, understanding the rationale for each therapy and the importance of ongoing assessment to prevent complications. Vaccination history was reviewed, with no allergic reaction or adverse effects anticipated. We discussed potential side effects of the shingles vaccine and she agreed to schedule it. Patient prefers to be active and stay involved with family activities which supports her functional status. Patient Instructions - Continue therapeutic phlebotomy every three months. - Take amlodipine and valsartan as prescribed daily. - Take calcium and vitamin D supplements daily. - Follow diet and exercise plans for healthy weight. - Schedule and complete shingles vaccination. - Ensure annual fasting bloodwork for thyroid function. - Maintain regular follow-ups with specialists. - Stay hydrated and eat a balanced diet rich in calcium. - Be aware of any unusual symptoms and seek medical care if needed. Orders: Orders Free T4 (Free Thyroxine) Today I10 - Essential (primary) hypertension Hemoglobin A1c Today I10 - Essential (primary) hypertension IRON PROFILE Today I10 - Essential (primary) hypertension Reticulocyte Count Today I10 - Essential (primary) hypertension Complete Blood Count Auto Diff Today I10 - Essential (primary) hypertension Comprehensive Met. Panel Today I10 - Essential (primary) hypertension Thyroid Stimulating Hormone Today I10 - Essential (primary) hypertension Lipid Panel Today E78.00 - Pure hypercholesterolemia, unspecified, I10 - Essential (primary) hypertension Vitamin B12 and Folate Today I10 - Essential (primary) hypertension Vitamin D 25-OH Total Today I10 - Essential (primary) hypertension UA w Microscopic Today I10 - Essential (primary) hypertension Ferritin Today I10 - Essential (primary) hypertension Medications: Refilled amlodipine-valsartan 10-320 mg 1 tab PO DAILY 90 tabs 2RF I10 - Essential (primary) hypertension
[2025-03-12 13:03] VITALS: BP 160/86; PULSE 104; TEMP 36.2; O2SAT 95; BMI 35.8
--- OUTSIDE RECORDS SUMMARY | 2025-03-12 13:05 | XMS_ITS | Clinical Summary ---
Author Organization [facility] Address [address] [place] [address] Care Team Providers Care Pitting Machine Operator Name Role Phone Unavailable Primary Care Provider [...]
[2025-03-12 13:40] VITALS: BP 134/80
== END 2025-03-12 13:58 | disposition home or self-care (01) ==
LOC: HO.HMCH 12:46
PROVIDERS: PCP Internal Medicine; Visit Provider Internal Medicine
DX: Z00.00 Encounter for general adult medical examination without abnormal findings (principal); D45 Polycythemia vera; E66.9 Obesity, unspecified; Z68.35 Body mass index [BMI] 35.0-35.9, adult; I10 Essential (primary) hypertension; M81.0 Age-related osteoporosis without current pathological fracture

== ENCOUNTER → 2025-03-12 12:45 | Outpatient (BNVA) | payer MEDICARE, OTHER, SELFPAY | PROVIDERS: PCP Internal Medicine; Visit Provider Internal Medicine | DX: Z00.00 Encounter for general adult medical examination without abnormal findings (principal); I10 Essential (primary) hypertension; E66.9 Obesity, unspecified; D45 Polycythemia vera; M81.0 Age-related osteoporosis without current pathological fracture | CPT/HCPCS: 96127; 99397 ==

== ENCOUNTER 2025-05-16 12:46 | Outpatient (REF) | payer MEDICARE, OTHER, SELFPAY ==
--- OUTSIDE RECORDS SUMMARY | 2025-05-16 13:41 | XMS_ITS | Clinical Summary ---
Author Organization [facility] Address [address] [place] [address] Care Team Providers Care Pipe Assembly Worker Name Role Phone Unavailable Primary Care Provider [...] season) 2024 12/27/2020, 11/26/2020 Influenza Vaccine (#1) 2025 Hepatitis B Vaccines Aged Out No long er eligible based on patient's age to complete this topic RSV Ped < 20 months Aged Out No longe r eligible based on patient's age to complete this topic
--- OUTSIDE RECORDS SUMMARY | 2025-05-16 13:41 | XMS_ITS | Patient Health Record ---
Author Organization [facility] Address [address] [place] [address] Care Team Providers Care Beauty Culturist Name Role Phone Po Vlad SALGADO Primary Care Provider Pola Oneal [phone] Allergies Allergen (clinical drug ingredient) Drug/Non Drug Allergy documented on EMR Reaction Allergy Type Onset Date Status Percodan Unknown Drug Allergy Active morphine Morphine Sulfate Unknown Drug Allergy Active seasonal (uncoded) Unknown Allergy A ctive Reason For Referral No Information Medications Medication SIG (Take, Route, Frequency, Duration) Notes Start Date End Date Status Colyte with Flavor Packs 240 GM As directed Orally once for 1 dose 10/28/2012 Active Patanol Active Erica Allergy 11/01/2024 11/01/2024 Ac tive Exforge 5/320 11/01/2024 11/01/2024 Acti ve Problems Problem Type SNOMED Code ICD Code Onset Dates Problem Status W/U Status Risk Notes Problem Colon cancer screening (867174706) Colon cancer screening (V76.51) Active confirmed Problem History of adenomatous polyp of colon (223032399) History of adenomatous polyp of colon (V12.72) Active confirmed Problem Diverticular disease of colon (428452911) Colon, diverticulosis (562.10) Active confirmed Plan Of Treatment Future Test Test Name Order Date COLONOSCOPY 10/07/2012 Insurance Providers Payer Name Payer Address Payer Phone Subscriber Number Group Number Insured Name Patient Relationship to Insured Coverage Start Date Coverage End Date [place] [address] [place] [address] [phone] [id number] TERENCE CLEMENTS Self - patient is the insured [facility] [employer] INDEMNITY [address] [place] [address] [id number] TERENCE CLEMENTS Self - patient is the insured Medical (General) History Medical History History ICD Code colonoscopy 09-07-2007--neg. except diver ticulosis and hemorrhoids 1.5 cm tubular adenoma removed in 1999 hypertension Denies MO,DM,CVA,Lung disease,renal dise ase Surgical History Surgery Date(Month/Year) hysterectomy with BSO Bilateral masectomies for fibrocystic di sease with breast implants appy
--- OUTSIDE RECORDS SUMMARY | 2025-05-16 13:41 | XMS_ITS | Patient Health Record ---
Author Organization [facility] Address [address] [place] [address] Care Team Providers Care Automatic Tire Tester Name Role Phone Vlad Ralph Primary Care Provider Albert Da Silva Unavailable [phone] Allergies Allergen (clinical drug ingredient) Drug/Non Drug Allergy documented on EMR Reaction Allergy Type Onset Date Status Percodan heart races Drug Allergy Activ e morphine Morphine vomiting Drug Allergy Active Reason For Referral No Information Medications Medication SIG (Take, Route, Frequency, Duration) Notes Start Date End Date Status Patanol 0.1 % 1 drop into affected eye Ophthalmic prn Active Exforge 5-320 MG 1 tablet Orally Once a day; Duration: 30 day(s) Active Neosporin + Pain Relief Max St 1 % as directed Externally bid; Duration: 05 days 08/03/2013 Active Erica prn Active Lactic Acid E 10-3500 %-UNT/30GM as directed Externally bid; Duration: 30 days 12/12/2013 Active Problems Problem Type SNOMED Code ICD Code Onset Dates Problem Status W/U Status Risk Notes Problem Cellulitis and abscess of toe (102155129) Celluitis - Toes (681.10) Active confirmed Problem Onychomycosis (322252815) Onychomycosis (110.1) Active confirmed Problem Pain in limb (42180348) Pain in Limb (729.5) Active confirmed Problem Paronychia (45694315) Paronychia (681.11) Active confirmed Problem Disorder of sebaceous gland (6563694) Xerosis (706.8) Active confirmed Plan Of Treatment Pending Test Test Name Order Date [id number] NAIL, 6 OR MORE 08/03/2013 [id number] NAIL, 6 OR MORE 12/12/2013 [id number] NAIL, 6 OR MORE 04/13/2014 19776 I&D ABSCESS- SIMPLE,SINGLE 013 Insurance Providers Payer Name Payer Address Payer Phone Subscriber Number Group Number Insured Name Patient Relationship to Insured Coverage Start Date Coverage End Date Medicare National [employer] [address] [place] [address] [id number] Ekaterina Dennis Self - patient is the insured 0 [employer] [address] [place] [address] [id number] Ekaterina Dennis Self - patient is the insured Medical (General) History Medical History History ICD Code cataracts chicken pox Hiatal hernia hypertension measles mumps psoriasis/eczema rheumatic fever scarlet fever Surgical History Surgery Date(Month/Year) hysterectomy 08/1978
== END 2025-05-16 12:47 | disposition home or self-care (01) ==
LOC: HO.BBR 12:46
PROVIDERS: PCP Internal Medicine; Visit Provider Internal Medicine Medical Oncology
DX: D45 Polycythemia vera (principal)
CPT/HCPCS: 85018; 99195

== ENCOUNTER 2025-06-18 08:40 | Outpatient (REF) | payer MEDICARE, OTHER, SELFPAY ==
--- OUTSIDE RECORDS SUMMARY | 2025-06-18 09:01 | XMS_ITS | Patient Health Record ---
Author Organization [facility] Address [address] [place] [address] Care Team Providers Care Campus Security Director Name Role Phone Vlad Ralph Primary Care Provider Albert Da Silva Unavailable [phone] Allergies Allergen (clinical drug ingredient) Drug/Non Drug [...] Notes Problem Cellulitis and abscess of toe (057468982) Celluitis - Toes (681.10) Active confirmed Problem Onychomycosis (617661729) Onychomycosis (110.1) Active confirmed Problem Pain in limb (56981880) Pain in Limb (729.5) Active confirmed Problem Paronychia (96198497) Paronychia (681.11) Active confirmed Problem Disorder of sebaceous gland (1974735) Xerosis (706.8) Active confirmed Plan Of Treatment Pending Test Test Name Order Date [id number] NAIL, 6 OR MORE 08/03/2013 [id number] NAIL, 6 OR MORE 12/12/2013 [id number] NAIL, 6 OR MORE 04/13/2014 69151 I&D ABSCESS- SIMPLE,SINGLE 013 Insurance Providers Payer Name Payer Address Payer Phone Subscriber Number Group Number Insured Name Patient Relationship to Insured Coverage Start Date Coverage End Date Medicare National Govt Sv[employer] Inc [address] [place] [address] [id number] Ekaterina Dennis Self - patient is the insured 0 [employer] ([employer] [address] [place] [address] [id number] Ekaterina Dennis Self - patient is the insured Medical (General) History Medical History History ICD Code cataracts chicken pox Hiatal hernia hypertension measles mumps psoriasis/eczema rheumatic fever scarlet fever Surgical History Surgery Date(Month/Year) hysterectomy 08/1978
--- OUTSIDE RECORDS SUMMARY | 2025-06-18 09:02 | XMS_ITS | Clinical Summary ---
Author Organization [facility] Address [address] [place] [address] Care Team Providers Care Carpenter Helper Hardwood Flooring Name Role Phone Unavailable Primary Care Provider [...]
--- OUTSIDE RECORDS SUMMARY | 2025-06-18 09:02 | XMS_ITS | Patient Health Record ---
Author Organization [facility] Address [address] [place] [id number] Care Team Providers Care Saturator Operator Name Role Phone Po Vlad SALGADO Primary Care Provider Pola Oneal [phone] Allergies Allergen (clinical drug ingredient) Drug/Non Drug [...] Status Risk Notes Problem Colon cancer screening (908244060) Colon cancer screening (V76.51) Active confirmed Problem History of adenomatous polyp of colon (894089056) History of adenomatous polyp of colon (V12.72) Active confirmed Problem Diverticular disease of colon (643935897) Colon, diverticulosis (562.10) Active confirmed Plan Of Treatment Future Test Test Name Order Date COLONOSCOPY 10/07/2012 Insurance Providers Payer Name Payer Address Payer Phone Subscriber Number Group Number Insured Name Patient Relationship to Insured Coverage Start Date Coverage End Date [place] [address] [place] [address] [phone] [id number] TERENCE CLEMENTS Self - patient is the insured [facility] [employer] TH INDEMNITY [address] [place] [address] [id number] TERENCE CLEMENTS Self - patient is the insured Medical (General) History Medical History History ICD Code colonoscopy 09-07-2007--neg. except diver ticulosis and hemorrhoids 1.5 cm tubular adenoma removed in 1999 hypertension Denies GA,DM,CVA,Lung disease,renal dise ase Surgical History Surgery Date(Month/Year) hysterectomy with BSO Bilateral masectomies for fibrocystic di sease with breast implants appy
--- OUTSIDE RECORDS SUMMARY | 2025-06-18 09:02 | XMS_ITS | Encounter Summary ---
Author Organization [facility] Address [address] [place] [address] Care Team Providers Care Health Service Worker Name Role Phone Vlad Ralph MD Primary Care Provider [phone] Encounter Details Date Type Department Care Team (Late st Contact Info) Description 06/15/2025 Lab Requisition [facility] - Main Lab [address] [facility] [place] [address] [facility] Lara MD [address] [facility] [address] [place] [address] Calculus of kidney Social History Tobacco Use Types Packs/Day Years Used Date Smoking Tobacco: Never Assessed Comments Unknown Sex and Gender Information Value Date Recorded Sex Assigned at Not on file Legal Sex Female 10:00 PM EST Gender Identity Not on file Sexual Orientation Not on file documented as of this encounter Plan of Treatment Not on file documented as of this encounter Procedures Procedure Name Priority Date/Time Associated Diagnosis Comments PARATHYROID HORMONE INTACT Routine 06/15/2025 10:16 AM EDT Calculus of kidney documented in this encounter Results * Parathyroid hormone intact (06/15/2025 10:16 AM EDT) PTH 69.8 18.5 - 88.0 pcg/mL LAB CHEMISTRY METHOD 06/15/2025 3:15 PM EDT [facility] Blood Venous blood specimen / Unknown 06/15/2025 10:16 AM EDT 06/15/2025 2:16 PM EDT us Bryan Lara MD LAB BLOOD ORDERABLES Final Result [facility] [address] [place] [address], documented in this encounter Visit Diagnoses Diagnosis Calculus of kidney documented in this encounter Care Teams Health Service Worker Relationship Specialty Start Date End Date Vlad Ralph MD [address] [place] [address] Dr [address] [facility] [place] [address] PCP - General Internal Medicine 06/15/25 documented as of this encounter
== END 2025-06-18 08:41 | disposition home or self-care (01) ==
LOC: HO.10HDL 08:40
PROVIDERS: Visit Provider Internal Medicine Endocrinology, Diabetes & Metabolism
DX: M85.80 Other specified disorders of bone density and structure, unspecified site (principal)
CPT/HCPCS: 36415; 84100

== ENCOUNTER 2025-06-20 08:25 | Outpatient (REF) | payer MEDICARE, OTHER, SELFPAY ==
--- OUTSIDE RECORDS SUMMARY | 2025-06-20 09:04 | XMS_ITS | Clinical Summary ---
Author Organization [facility] Address [address] [place] [address] Care Team Providers Care Patch Driller Name Role Phone Unavailable Primary Care Provider [...]
--- OUTSIDE RECORDS SUMMARY | 2025-06-20 09:04 | XMS_ITS | Patient Health Record ---
Author Organization [facility] Address [address] [place] [address] Care Team Providers Care Deck Hand Name Role Phone Vlad Ralph Primary Care Provider Albert Da Silva Unavailable [phone] Allergies Allergen (clinical drug ingredient) Drug/Non Drug [...] Notes Problem Cellulitis and abscess of toe (248447939) Celluitis - Toes (681.10) Active confirmed Problem Onychomycosis (113342862) Onychomycosis (110.1) Active confirmed Problem Pain in limb (50428629) Pain in Limb (729.5) Active confirmed Problem Paronychia (34280688) Paronychia (681.11) Active confirmed Problem Disorder of sebaceous gland (8738416) Xerosis (706.8) Active confirmed Plan Of Treatment Pending Test Test Name Order Date [id number] NAIL, 6 OR MORE 08/03/2013 [id number] NAIL, 6 OR MORE 12/12/2013 [id number] NAIL, 6 OR MORE 04/13/2014 00910 I&D ABSCESS- SIMPLE,SINGLE 013 Insurance Providers Payer Name Payer Address Payer Phone Subscriber Number Group Number Insured Name Patient Relationship to Insured Coverage Start Date Coverage End Date Medicare National Govt Svcs Inc [address] [place] [address] [id number] Ekaterina Dennis Self - patient is the insured 0 [employer] [address] [place] [address] [id number] Ekaterina Dennis Self - patient is the insured Medical (General) History Medical History History ICD Code cataracts chicken pox Hiatal hernia hypertension measles mumps psoriasis/eczema rheumatic fever scarlet fever Surgical History Surgery Date(Month/Year) hysterectomy 08/1978
--- OUTSIDE RECORDS SUMMARY | 2025-06-20 09:04 | XMS_ITS | Patient Health Record ---
Author Organization [facility] Address [address] [place] [address] Care Team Providers Care Workforce Advisor Name Role Phone Po Vlad SALGADO Primary Care Provider Pola Oneal [phone] Allergies Allergen (clinical drug ingredient) Drug/Non Drug [...] Status Risk Notes Problem Colon cancer screening (196183099) Colon cancer screening (V76.51) Active confirmed Problem History of adenomatous polyp of colon (643092899) History of adenomatous polyp of colon (V12.72) Active confirmed Problem Diverticular disease of colon (002276364) Colon, diverticulosis (562.10) Active confirmed Plan Of Treatment Future Test Test Name Order Date COLONOSCOPY 10/07/2012 Insurance Providers Payer Name Payer Address Payer Phone Subscriber Number Group Number Insured Name Patient Relationship to Insured Coverage Start Date Coverage End Date MED[place]ARE OF [place] [address] [place] [address] [phone] [id number] TERENCE CLEMENTS Self - patient is the insured [facility] [employer] TH INDEMNITY [address] [place] [address] [id number] TERENCE CLEMENTS Self - patient is the insured Medical (General) History Medical History History ICD Code colonoscopy 09-07-2007--neg. except diver ticulosis and hemorrhoids 1.5 cm tubular adenoma removed in 1999 hypertension Denies ND,DM,CVA,Lung disease,renal dise ase Surgical History Surgery Date(Month/Year) hysterectomy with BSO Bilateral masectomies for fibrocystic di sease with breast implants appy
--- OUTSIDE RECORDS SUMMARY | 2025-06-20 09:04 | XMS_ITS | Encounter Summary ---
Author Organization [facility] Address [address] [place] [address] Care Team Providers Care Pleating Supervisor Name Role Phone Vlad Ralph MD Primary Care Provider [phone] Encounter Details Date Type Department Care Team (Late st Contact Info) Description 06/15/2025 Lab Requisition [facility] - Main Lab [address] [facility] [place] [address] [facility] [address] [facility] [facility] [address] [place] [address] Calculus of kidney Social History Tobacco Use [...] LAB CHEMISTRY METHOD 06/15/2025 3:15 PM EDT [facility] Blood Venous blood specimen / Unknown 06/15/2025 10:16 AM EDT 06/15/2025 2:16 PM EDT us Bryan Lara MD LAB BLOOD ORDERABLES Final Result [facility] [address] [place] [address], documented in this encounter Visit Diagnoses Diagnosis Calculus of kidney documented in this encounter Care Teams Pleating Supervisor Relationship Specialty Start Date End Date Vlad Ralph MD [address] [place] [address] [address] [facility] [place] [address] PCP - General Internal Medicine 06/15/25 documented as of this encounter
[2025-06-20 12:24] LABS: Creatinine, mg/dL 39.73
[2025-06-20 12:26] LABS: Total Volume 24 Hour Urine 2250 mL
[2025-06-21 16:18] LABS: Calcium/Creatinine Ratio 147 mg/g creat (30-275); Creatinine 24Hr Urine 0.97 g/24 h (0.50-2.15)
== END 2025-06-20 08:26 | disposition home or self-care (01) ==
LOC: HO.10HDLNP 08:25
PROVIDERS: Visit Provider Internal Medicine Endocrinology, Diabetes & Metabolism
DX: M85.80 Other specified disorders of bone density and structure, unspecified site (principal)
CPT/HCPCS: 82340; 82570

== ENCOUNTER 2025-06-25 13:22 | Outpatient (AMB) | payer MEDICARE, OTHER, SELFPAY ==
--- OUTSIDE RECORDS SUMMARY | 2025-06-22 23:59 | XMS_ITS | Continuity of Care Document ---
Author Organization [facility] Address [address] [facility] [place] [address]- Care Team Providers Care Environmental Protection Specialist Name Role Phone Vlad Ralph MD Primary Care Physician [phone] Encounter 06/15/25 - 06/22/25 [facility] [address], [address] [place] [address]- Attending Physician: Aleksandra Gill Admitting Physician: Aleksandra Gill Referring Physician: Luzma Hui Referring Physician: Aleksandra Gill Encounter Type: OutPatient One Time Allergies, Adverse Reactions, Alerts Substance Criticality Severity Reaction Reaction Severity Status morphine GI Distress Active Percodan Hives Active Other Environmental Allergy seasonal Active Medications amlodipine-valsartan 10 mg-320 mg oral tablet 1 tablet, By Mouth, Daily, 0 Refills, Maintenance, 02/04/24 5:23:00 PM EDT, Partial fill upon patientrequest if the prescription is for a schedule II opioid drug. Start Date: 02/04/24 Status: Ordered Repeat number: 1 aspirin 81 mg oral capsule 1 capsule = 81 mg, By Mouth, Every 24 hours, 0 Refills, Maintenance, 02/04/24 5:21:00 PM EDT, Partialfill upon patient request if the prescription is for a schedule II opioid drug. Start Date: 02/04/24 Status: Ordered Repeat number: 1 Bactrim 400 mg-80 mg oral tablet 1 tablet, By Mouth, 2 times a day, # 10 tablet, 0 Refills, Maintenance, 02/10/24 11:15:00 AM EDT, Tablet, Partial fill upon patient request if the prescription is for a schedule II opioid drug. Start Date: 02/10/24 Status: Ordered Quantity: 10.0 Unit: tablet Repeat number: 1 hydroxyurea 500 mg oral capsule 2 capsule = 1,000 mg, By Mouth, Daily, # 60 capsule, 0 Refills, Maintenance, 02/04/24 6:03:00 PM EDT,Capsule, Partial fill upon patient request if the prescription is for a schedule II opioid drug. Start Date: 02/04/24 Status: Ordered Quantity: 60.0 Unit: capsule Repeat number: 1 Multivitamin 0 Refills, Maintenance, 02/04/24 5:23:00 PM EDT, Partial fill upon patient request if the prescription is for a schedule II opioid drug. Start Date: 02/04/24 Status: Ordered Repeat number: 1 Problem List Condition Confirmation Course Effective Dates Status Health St atus Informant Obese class II Confirmed Active Results Radiology Reports * Exam Date Time Procedure Performing Provider Status 06/15/25 11:14 AM Lumus M odified Notes: (Lumus) Reason For Exam: calculus of kidney RESULT: [employer] [facility] [address] [place] [address]. Reason: Calculus of kidney. COMPARISON: 10/15/2023; CT Abdomen and Pelvis 06/15/2024. FINDINGS: Right kidney: 11.1 cm in length. No hydronephrosis. Normal parenchymal thickness and echotexture. Non-shadowing 0.2 cm echogenic focus in the upper pole. No shadowing stones. No suspicious mass. Exophytic simple cyst arising from the lower pole measuring 1.2 x 1.3 x 1.3 cm, similar to comparison CT. Left kidney: 10.6 cm in length. No hydronephrosis. Normal parenchymal thickness and echotexture. There are two non-shadowing echogenic foci measuring up to 0.3 cm in the interpolar region. No shadowing stones. No suspicious mass. Multiple parapelvic cysts versus mild pelvicaliectasis, similar toprior. IMPRESSION: Non-shadowing echogenic foci bilaterally may represent nonobstructing calculi or other artifact. Nohydronephrosis. Stable 1.3 cm right renal cortical cyst. Stable left parapelvic cysts versus mild pelvicaliectasis WSN: [id number] Ordering Physician: Aleksandra Barroso Dictated By: Marge SALGADO, Leodan Edgar Dictated Date/Time: 06/18/25 8:09 am Reviewed By: Leodan Bird MD Signed By: Leodan Bird MD Signed Date/Time: 06/18/25 8:09 am Transcribed By: TY Transcribed Date/Time: 06/17/25 5:53 pm Social History Social History Type Response Smoking Status Never smoker entered on: 08/15/18 Sex Sex Representation Female (finding) Patient Care team information Care Team Personnel Name: Vlad Ralph MD Position: Reference Physician Member Role: PCP Address: [address] [place] [address] Telecom: Care Team Related Persons Name: MAREN LOU Name: ELSA AMOR Insurance Providers Guarantor name: TERENCE CLEMENTS [employer] Plan Information #: 1 Payer: MEDICARE B Payer Identifier: CONRAD Member Number: [id number] Group Number: Subscriber Identifier: [id number] Relationship to Subscriber: self Coverage Type: NA Coverage Verification Date: NA Telecom: Address: Health Plan Information #: 2 Payer: [facility] IN[employer]MN[employer] PLAN Payer Identifier: CONRAD Member Number: [id number] Group Number: [id number] Subscriber Identifier: [id number] Relationship to Subscriber: self Coverage Type: Commercial Indemnity Coverage Verification Date: Telecom: Address:
[2025-06-25 13:27] VITALS: BP 126/72; PULSE 96; O2SAT 94; BMI 36.7
--- NOTE | 2025-06-25 13:27 | A.OFFVIS_ITS ---
Vital Signs 06/25/25 13:27 Height 5 ft 1.69 in Weight 198 lb 10.184 oz BMI 36.7 BP 126/72 Blood Pressure Location Rt brachial Position Sitting Pulse 96 Pulse Source Pulse Oximeter Pulse Oximetry (%) 94 Oxygen Delivery Method Room Air Intake Visit Reasons: Osteoporosis Intake Note: Patient present today for Osteoporosis follow up. Combat Systems Operator Required: No Accompanied by: Self / Same As Patient Allergies hydrochlorothiazide (HYDROCHLOROTHIAZIDE) Allergy (Intermediate, Verified 06/25/25 13:28) SEVERE CRAMPING metoprolol Allergy (Unknown, Verified 06/25/25 13:28) Muscle aches morphine (MORPHINE) Allergy (Unknown, Verified 06/25/25 13:28) Nausea and Vomiting oxycodone (From PERCODAN) Allergy (Unknown, Verified 06/25/25 13:28) Unknown Seasonal Allergies Allergy (Unknown, Verified 06/25/25 13:28) Itchy Eyes hydrochloride Allergy (Mild, Uncoded 06/25/25 13:28) Stomach Upset Medication List - Last Reconciled 06/25/25 by Pola Byers MD amlodipine-valsartan 10-320 mg 1 tab PO DAILY aspirin 81 mg PO DAILY cholecalciferol (vitamin D3) (Vitamin D3) 25 mcg PO DAILY multivitamin 1 tab PO DAILY HPI Comments Details: The patient is an 84-year-old female presenting with osteoporosis management. Her osteoporosis diagnosis followed from a bone density scan carried out last October, revealing progression from osteopenia established previously. She has not undertaken any osteoporotic treatment to date, with no noted fractures in the hip or spine. Her medical history indicates diagnosed polycythemia vera, managed with aspirin under Dr. Marquez's oversight. She underwent a hysterectomy with bilateral oophorectomy at 36 years to address uncontrollable uterine bleeding tied to fibrocystic breast disease, avoiding subsequent hormone replacement therapy. A history of kidney stones is recorded, with recent intervention around December 2023 to address significant stone formation. Initial diagnostics regarding her kidney condition, including a prospective 24-hour urine collection, has not occurred for over 25 years. The osteoporosis does not manifest with acute symptoms other than minimal soreness on extended standing which the patient manages with [id number] Tylenol. She does not engage in weight-bearing exercises and reports a reduction in height from 5'2 down to 5'1 , illustrating potential disease advancement. Heightened concerns regarding fracture risks and future loss of mobility have prompted proactive measures for preventative osteoporosis management. First diagnosed in recently . Never Received treatment in the past No history of pathologic fracture or ONJ. Has several servings of dietary calcium per day in the form of milk, broccoli , yogurt , ice cream . Takes Calcium supplement ? mg daily in divided doses. Takes ? IU of Vitamin D daily in MVI .The patient maintains a diet that includes high calcium-rich foods. She drinks half gallons of milk regularly, consumes broccoli, yogurt, mozzarella cheese, and occasionally enjoys ice cream. Oranges are her favorite fruit. She supplements her diet with a multivitamin daily and has a nutrition shake at breakfast. The patient ensures adequate water intake for hydration. Denies ever using PPI, anticoagulant, antiepileptic or glucocorticoid medication. 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 UTD on dental cleanings and sees dentist every 6 months. No planned upcoming dental work or extractions. No tabacco use or ETOH abuse DXA dated 10/20/24 :AP SPINE L1-L2 (excluding L3 and L4): The data of L1-L4 has been changed to exclude the L3 and L4 vertebral bodies, because significant degenerative change at these levels may cause overestimation of lumbar spine density. Current: BMD 0.849 g/cm2, Z-score -1.6, T-score -2.6, osteoporosis, 6.6% decrease from previous, 0.8% decrease from baseline (<5% change is not significant). Prior: BMD 0.909 g/cm2. Baseline: BMD 0.856 g/cm2. IDENTIFIED RISK FACTORS: Early menopause, secondary osteoporosis, height loss, hysterectomy, bilateral oophorectomy. HISTORY OF FRACTURE: None listed. MEDICATIONS: Calcium supplements or multivitamin, vitamin D. MM/XR DEXA axial skeleton IMPRESSION: 1. DIAGNOSIS: Osteoporosis based on the lowest T-score value of -2.6 in the lumbar spine applying World Health Organization criteria. Labs: Secondary workup was negative The patient is an 85-year-old female presenting with osteoporosis management. Her osteoporosis was identified with a T score of -2.6, indicating a risk for fractures, and she is considering treatment options to prevent fractures. The patient also has a history of kidney stones, monitored with annual ul trasounds, with recent results showing tiny stones expected to pass naturally. She has undergone a hysterectomy in the past, which may contribute to her low bone density, and she takes calcium and vitamin D supplements for bone health. [facility] Medical History (Updated 03/12/25 @ 13:37 by Vlad Ralph MD) Osteopenia Mammogram declined Diaphragmatic hernia Renal calculi Cervical spondylosis Allergic rhinitis Vitamin D deficiency Tubular adenoma of colon Hypertension Erythrocytosis Surgical History Vaginal cyst History of cataract surgery S/P CLARISSA-BSO (total abdominal hysterectomy and bilateral salpingo-oophorectomy) History of appendectomy History of reconstruction of both breasts Family History (Reviewed 03/12/25 @ 12:57 by Cecily Wilson [facility]) Father Lung cancer Brother Lung cancer COPD (chronic obstructive pulmonary disease) Diabetes Daughter HTN (hypertension) Stroke Social History Household Members: None Housing: House Are you a primary animal daycare provider to a significant other at home: No Do you presently have visiting nurse or other home services: No Alcohol intake: never Patient Tobacco Use Status: Never used Tobacco e-Cigarette/Vaping Use: Never Used Second Hand Smoke Exposure: No service: No Current occupational status: retired Cognitive needs: No Hearing needs: No Vision needs: Yes Assessment & Plan Assessment & Plan (1) Osteopenia: Comment: August 2008 Code(s): M85.80 - Other specified disorders of bone density and structure, unspecified site Category: Medical Qualifiers: Osteopenia location: unspecified Qualified Code(s): M85.80 - Other specified disorders of bone density and structure, unspecified site Plan: This 85-year-old white female with a history of newly diagnosed borderline osteoporosis withsecondary workup negative Plan is to discuss with patient potential use of alendronate or Reclast. We will continue with calcium and vitamin-D. The patient is opting to go on alendronate he will be started on alendronate 70 mg Q weekly. Went over side effects of alendronate including but not limited to worsening of GERD, atypical femur fracture and osteonecrosis of the jaw. 1. Osteoporosis The patient's T score of -2.6 suggests a borderline risk for fractures. Treatment with alendronate Fosamax) once a week is recommended to protect against fractures. The patient should take the medication with water, sitting up, and avoid lying down for 30 minutes post-ingestion. Follow-up bone density testing is planned in a couple of years to assess improvement. I discussed with the patient the management of her osteoporosis, emphasizing the importance of preventing fractures given her T score of -2.6 and age. We reviewed the option of starting alendronate (Fosamax) once a week, discussing its low cost and the need to take it with water while sitting up to minimize side effects such as reflux. I explained the rare risks associated with the medication, including potential jaw issues and atypical fractures, and advised her to consider these when deciding on treatment. - Take alendronate (Fosamax) once a week with a full glass of water, sitting up, and avoid lying down for 30 minutes after taking it. - Continue taking your hypertension medication and baby aspirin as prescribed. - Maintain calcium and vitamin D supplementation as discussed. - The patient had an opportunity to ask questions regarding treatment plan. The patient expressed understanding and agreement with the above treatment plan. Patient was informed and verbally consented to the use of an ambient scribe for clinic note documentation during this visit. Orders: Orders Collagen Crosslinks NTX 5 Months M81.0 - Age-related osteoporosis without current pathological fracture Medications: New alendronate 70 mg PO QWEEK 5 tabs 6RF Coding Level of Care Code Est Pt Level 3 (78641) Diagnoses Osteopenia, unspecified location M85.80 Osteopenia location: unspecified
--- OUTSIDE RECORDS SUMMARY | 2025-06-25 14:45 | XMS_ITS | Clinical Summary ---
Author Organization [address] Address [address] [place] [address] Phone Care Team Providers Care Cane Flume Watchman Name Role Phone Vlad Ralph MD Primary Care Provider [phone] Encounters Date Type Department Care Team Description 06/15/2025 Lab Requisition [facility] - Main Lab [address] [facility] [place] [address] Bryan Lara MD Calculus of kidney from Last 3 Months Social History Tobacco Use Types Packs/Day Years Used Date Smoking Tobacco: Never Assessed Comments Unknown Sex and Gender Information Value Date Recorded Sex Assigned at Not on file Legal Sex Female 10:00 PM EST Gender Identity Not on file Sexual Orientation Not on file Plan of Treatment Health Maintenance Due Date Last Done Comments DTaP,Tdap,and Td Vaccines (1 - Tdap) 1960 Pneumococcal Vaccine: 50+ Years (1 of 1 - PCV) 1991 Zoster Vaccines (1 of 2) 1991 RSV Immunization Adult Patients (1 - 1-dose 75+ series) 2016 COVID-19 Vaccine (3 - 2023-2 5 season) 2024 12/27/2020, 11/26/2020 Depression Screening 11/01/2024 Falls Risk Assessment 06/15/2025 Medicare Annual Wellness Visit 06/15/2025 Osteoporosis Screening (Bone Density Screening) 06/15/2025 Social Influencers of Health Screening 06/15/2025 Influenza Vaccine (#1) 2025 HIB Vaccines Aged Out No longer eligi ble based on patient's age to complete this topic HPV Vaccines Aged Out No longer eligi ble based on patient's age to complete this topic Hepatitis A Vaccines Aged Out No long er eligible based on patient's age to complete this topic Hepatitis B Vaccines Aged Out No long er eligible based on patient's age to complete this topic IPV Vaccines Aged Out No longer eligi ble based on patient's age to complete this topic MMR Vaccines Aged Out No longer eligi ble based on patient's age to complete this topic Meningococcal ACWY Vaccine Aged Out N o longer eligible based on patient's age to complete this topic Meningococcal B Vaccine Aged Out No l onger eligible based on patient's age to complete this topic RSV Immunization Patients Under 20 months Aged Out No longer eligible b ased on patient's age to complete this topic Varicella Vaccines Aged Out No longer eligible based on patient's age to complete this topic Procedures Procedure Name Priority Date/Time Associated Diagnosis Comments PARATHYROID HORMONE INTACT Routine 06/15/2025 10:16 AM EDT [facility] kidney from Last 3 Months Results * Parathyroid hormone intact (06/15/2025 10:16 AM EDT) PTH 69.8 18.5 - 88.0 pcg/mL LAB CHEMISTRY METHOD 06/15/2025 3:15 PM EDT [facility] Blood Venous blood specimen / Unknown 06/15/2025 10:16 AM EDT 06/15/2025 2:16 PM EDT Bryan Lara MD LAB BLOOD ORDERABLES Final Result [facility] [address] [place] [address], from Last 3 Months Insurance MEDICARE [employer] Care Teams Cane Flume Watchman Relationship Specialty Start Date End Date Vlad Ralph MD [address] [place] [address] [address] [facility] [place] [address] PCP - General Internal Medicine 06/15/25
--- OUTSIDE RECORDS SUMMARY | 2025-06-25 14:45 | XMS_ITS | Encounter Summary ---
Author Organization [facility] Address [address] [place] [address] Care Team Providers Care Box Turner Name Role Phone Vlad Ralph MD Primary Care Provider [phone] Encounter Details Date Type Department Care Team (Late st Contact Info) Description 06/15/2025 Lab Requisition [facility] - Main Lab 299 [facility] [place] [address] [facility] [address] [facility] [address] [place] [address] Calculus of kidney Social History Tobacco Use [...] LAB CHEMISTRY METHOD 06/15/2025 3:15 PM EDT [facility] Blood Venous blood specimen / Unknown 06/15/2025 10:16 AM EDT 06/15/2025 2:16 PM EDT us Bryan Lara MD LAB BLOOD ORDERABLES Final Result [facility] [address] [place] [address], documented in this encounter Visit Diagnoses Diagnosis Calculus of kidney documented in this encounter Care Teams Box Turner Relationship Specialty Start Date End Date Vlad Ralph MD [address] [place] [address] [address] [facility] [place] [address] PCP - General Internal Medicine 06/15/25 documented as of this encounter
--- OUTSIDE RECORDS SUMMARY | 2025-06-25 14:45 | XMS_ITS | Patient Health Record ---
Author Organization [facility] Address [address] [place] [address] Care Team Providers Care Gluer Name Role Phone Vlad Ralph Primary Care Provider Albert Da Silva Unavailable [phone] Allergies Allergen (clinical drug ingredient) Drug/Non Drug [...] Notes Problem Cellulitis and abscess of toe (200071039) Celluitis - Toes (681.10) Active confirmed Problem Onychomycosis (838247802) Onychomycosis (110.1) Active confirmed Problem Pain in limb (79681266) Pain in Limb (729.5) Active confirmed Problem Paronychia (75899207) Paronychia (681.11) Active confirmed Problem Disorder of sebaceous gland (0473925) Xerosis (706.8) Active confirmed Plan Of Treatment Pending Test Test Name Order Date [id number] NAIL, 6 OR MORE 08/03/2013 [id number] NAIL, 6 OR MORE 04/13/2014 [id number] NAIL, 6 OR MORE 12/12/2013 19917 I&D ABSCESS- SIMPLE,SINGLE 013 Insurance Providers Payer Name Payer Address Payer Phone Subscriber Number Group Number Insured Name Patient Relationship to Insured Coverage Start Date Coverage End Date Medicare National Govt Sv[employer] Inc [address] [facility] [place] [address] [id number] Ekaterina Dennis Self - patient is the insured 0 [employer] ([employer]) [address] [place] [address] [id number] Ekaterina Dennis Self - patient is the insured Medical (General) History Medical History History ICD Code cataracts chicken pox Hiatal hernia hypertension measles mumps psoriasis/eczema rheumatic fever scarlet fever Surgical History Surgery Date(Month/Year) hysterectomy 08/1978
--- OUTSIDE RECORDS SUMMARY | 2025-06-25 14:45 | XMS_ITS | Clinical Summary ---
Author Organization [facility] Address [address] [place] [address] Care Team Providers Care Private Advisor Name Role Phone Unavailable Primary Care Provider [...]
--- OUTSIDE RECORDS SUMMARY | 2025-06-25 14:45 | XMS_ITS | Patient Health Record ---
Author Organization [facility] Address [address] [place] [address] Care Team Providers Care Cigar Head Pegger Name Role Phone Po Vlad SALGADO Primary Care Provider Pola Oneal [phone] Allergies Allergen (clinical drug ingredient) Drug/Non Drug [...] Status Risk Notes Problem Colon cancer screening (699416598) Colon cancer screening (V76.51) Active confirmed Problem History of adenomatous polyp of colon (445216825) History of adenomatous polyp of colon (V12.72) Active confirmed Problem Diverticular disease of colon (301882376) Colon, diverticulosis (562.10) Active confirmed Plan Of Treatment Future Test Test Name Order Date COLONOSCOPY 10/07/2012 Insurance Providers Payer Name Payer Address Payer Phone Subscriber Number Group Number Insured Name Patient Relationship to Insured Coverage Start Date Coverage End Date MEDICARE OF [place] [address] [place] [address] [phone] [id number] TERENCE CLEMENTS Self - patient is the insured [facility] [address] [employer] TH INDEMNITY [address] [place] [address] [id number] TERENCE CLEMENTS Self - patient is the insured Medical (General) History Medical History History ICD Code colonoscopy 09-07-2007--neg. except diver ticulosis and hemorrhoids 1.5 cm tubular adenoma removed in 1999 hypertension Denies [place],DM,CVA,Lung disease,renal dise ase Surgical History Surgery Date(Month/Year) hysterectomy with BSO Bilateral masectomies for fibrocystic di sease with breast implants appy
== END 2025-06-25 13:44 | disposition home or self-care (01) ==
LOC: HO.ENCR 13:23
PROVIDERS: PCP Internal Medicine; Visit Provider Internal Medicine Endocrinology, Diabetes & Metabolism
DX: M85.80 Other specified disorders of bone density and structure, unspecified site (principal)
CPT/HCPCS: 99213

== ENCOUNTER → 2025-06-25 13:22 | Outpatient (BNVA) | payer MEDICARE, OTHER, SELFPAY | PROVIDERS: PCP Internal Medicine; Visit Provider Internal Medicine Endocrinology, Diabetes & Metabolism | DX: M85.80 Other specified disorders of bone density and structure, unspecified site (principal) | CPT/HCPCS: 99212 ==

== ENCOUNTER 2025-08-16 12:55 | Outpatient (REF) | payer MEDICARE, OTHER, SELFPAY | END 2025-08-16 12:56 | disposition home or self-care (01) | LOC: HO.BBR 12:55 | PROVIDERS: PCP Internal Medicine; Visit Provider Internal Medicine Medical Oncology | DX: D45 Polycythemia vera (principal) | CPT/HCPCS: 85018; 99195 ==

== ENCOUNTER 2025-09-06 08:21 | Outpatient (REF) | payer MEDICARE, OTHER, SELFPAY ==
--- OUTSIDE RECORDS SUMMARY | 2025-09-06 08:44 | XMS_ITS | Clinical Summary ---
Author Organization [address] Address [address] [place] [address] Phone Care Team Providers Care Contact Center Specialist Name Role Phone Vlad Ralph MD Primary Care Provider [phone] Encounters Date Type Department Care Team Description 06/15/2025 Lab Requisition [facility] - Main Lab [address] [facility] [place] [address] Bryan Lara MD Calculus of [...] Patients (1 - 1-dose 75+ series) 2016 Depression Screening 11/01/2024 Falls Risk Assessment 06/15/2025 Medicare Annual Wellness Visit 06/15/2025 Osteoporosis Screening (Bone Density Screening) 06/15/2025 Social Influencers of Health Screening 06/15/2025 COVID-19 Vaccine (3 - 2024-2 6 season) 2025 12/27/2020, 11/26/2020 Influenza Vaccine (#1) 2025 HIB Vaccines Aged [...] LAB CHEMISTRY METHOD 06/15/2025 3:15 PM EDT [facility] Blood Venous blood specimen / Unknown 06/15/2025 10:16 AM EDT 06/15/2025 2:16 PM EDT Bryan Lara MD LAB BLOOD ORDERABLES Final Result [facility] [address] [place] [address], from Last 3 Months [facility] Care Teams Contact Center Specialist Relationship Specialty Start Date End Date Vlad Ralph MD [address] [place] [address] [address] [facility] [place] [address] PCP - General Internal Medicine 06/15/25
--- OUTSIDE RECORDS SUMMARY | 2025-09-06 08:44 | XMS_ITS | Patient Health Record ---
Author Organization [facility] Address [address] [place] [address] Care Team Providers Care Supervisor [employer] Name Role Phone Vlad Ralph Primary Care Provider Albert Da Silva Unavailable [phone] Allergies Allergen (clinical drug ingredient) Drug/Non Drug [...] Notes Problem Cellulitis and abscess of toe (847604394) Celluitis - Toes (681.10) Active confirmed Problem Onychomycosis (605573570) Onychomycosis (110.1) Active confirmed Problem Pain in limb (21086668) Pain in Limb (729.5) Active confirmed Problem Paronychia (51590152) Paronychia (681.11) Active confirmed Problem Disorder of sebaceous gland (6697367) Xerosis (706.8) Active confirmed Plan Of Treatment Pending Test Test Name Order Date [id number] NAIL, 6 OR MORE 08/03/2013 [id number] NAIL, 6 OR MORE 12/12/2013 [id number] NAIL, 6 OR MORE 04/13/2014 04044 I&D ABSCESS- SIMPLE,SINGLE 013 Insurance Providers Payer Name Payer Address Payer Phone Subscriber Number Group Number Insured Name Patient Relationship to Insured Coverage Start Date Coverage End Date Medicare National Govt Svcs Inc [address] [facility] [place] [address] [id number] Ekaterina Dennis Self - patient is the insured 0 [employer] ([employer]) [address] [place] [address] [id number] Ekaterina Dennis Self - patient is the insured Medical (General) History Medical History History ICD Code cataracts chicken pox Hiatal hernia hypertension measles mumps psoriasis/eczema rheumatic fever scarlet fever Surgical History Surgery Date(Month/Year) hysterectomy 08/1978
--- OUTSIDE RECORDS SUMMARY | 2025-09-06 08:44 | XMS_ITS | Clinical Summary ---
Author Organization [facility] Address [address] [place] [address] Care Team Providers Care Piercing Artist Name Role Phone Unavailable Primary Care Provider [...] 75+ series) 2016 COVID-19 Vaccine (3 - 2024-2 6 season) 2025 12/27/2020, 11/26/2020 Influenza Vaccine (#1) 2025 Hepatitis B Vaccines Aged Out No long er eligible based on patient's age to complete this topic RSV Ped < 20 months Aged Out No longe r eligible based on patient's age to complete this topic
--- OUTSIDE RECORDS SUMMARY | 2025-09-06 08:44 | XMS_ITS | Patient Health Record ---
Author Organization [facility] Address [address] [place] [address] Care Team Providers Care Theatrical Performer Name Role Phone Po Vlad SALGADO Primary Care Provider Pola Oneal [phone] Allergies Allergen (clinical drug ingredient) Drug/Non Drug Allergy documented on EMR Reaction Allergy Type Onset Date Status Percodan Unknown Drug Allergy Active morphine Morphine Sulfate Unknown Drug Allergy Active seasonal (uncoded) Unknown Allergy A ctive Reason For Referral No Information Medications Medication SIG (Take, Route, Frequency, Duration) Notes Start Date End Date Status Colyte with Flavor Packs 240 GM As directed Orally once; Duration: 1 dose 10/28/2012 Active Patanol Active Erica Allergy 11/01/2024 11/01/2024 Ac tive Exforge 5/320 11/01/2024 11/01/2024 Acti ve Problems Problem Type SNOMED Code ICD Code Onset Dates Problem Status W/U Status Risk Notes Problem Colon cancer screening (939287182) Colon cancer screening (V76.51) Active confirmed Problem History of adenomatous polyp of colon (294602564) History of adenomatous polyp of colon (V12.72) Active confirmed Problem Diverticular disease of colon (684927754) Colon, diverticulosis (562.10) Active confirmed Plan Of Treatment Future Test Test Name Order Date COLONOSCOPY 10/07/2012 Insurance Providers Payer Name Payer Address Payer Phone Subscriber Number Group Number Insured Name Patient Relationship to Insured Coverage Start Date Coverage End Date MEDICARE OF [place] [address] [place] [address] [phone] [id number] TERENCE CLEMENTS Self - patient is the insured [facility] [employer] IN[employer] [address] [place] [address] [id number] TERENCE CLEMENTS Self - patient is the insured Medical (General) History Medical History History ICD Code colonoscopy 09-07-2007--neg. except diver ticulosis and hemorrhoids 1.5 cm tubular adenoma removed in 1999 hypertension Denies [place],DM,CVA,Lung disease,renal dise ase Surgical History Surgery Date(Month/Year) hysterectomy with BSO Bilateral masectomies for fibrocystic di sease with breast implants appy
--- OUTSIDE RECORDS SUMMARY | 2025-09-06 08:44 | XMS_ITS | Encounter Summary ---
Author Organization [facility] Address [address] [place] [address] Care Team Providers Care Appointment Setter Name Role Phone Vlad Ralph MD Primary Care Provider [phone] Encounter Details Date Type Department Care Team (Late st Contact Info) Description 06/15/2025 Lab Requisition [facility] - Main Lab [address] [facility] [employer] [place] [address] Bryan Lara MD [address] [facility] [address] [place] [address] Calculus of kidney Social History Tobacco Use [...] LAB CHEMISTRY METHOD 06/15/2025 3:15 PM EDT [facility] Blood Venous blood specimen / Unknown 06/15/2025 10:16 AM EDT 06/15/2025 2:16 PM EDT us Bryan Lara MD LAB BLOOD ORDERABLES Final Result [facility] [address] [place] [address], documented in this encounter Visit Diagnoses Diagnosis Calculus of kidney documented in this encounter Care Teams Appointment Setter Relationship Specialty Start Date End Date Vlad Ralph MD [address] [place] [address] [address] [facility] [place] [address] PCP - General Internal Medicine 06/15/25 documented as of this encounter
[2025-09-06 10:12] LABS: MANUAL DIFF FLAG NO
[2025-09-06 10:40] LABS: Hematocrit 47.5 % (37.0-47.0); Hemoglobin 15.7 g/dl (12.0-16.0); Imm Gran Abs Auto 0.02 X10*3/uL (0.00-0.03); Imm Gran Pct Auto 0.2 % (0.0-0.4); Lymphocytes Absolute Auto 3.6 X10*3/uL (1.2-4.9); Mean Corpuscular HGB Conc 33.1 g/dl (31.0-35.0); Mean Corpuscular Hemoglobin 31.5 pg (27.0-33.0); Mean Corpuscular Volume 95.4 fL (80.0-98.0); NRBC Abs Auto 0.000 X10*3/uL (0.0-0.012); NRBC Pct Auto 0.0 /100WBC (0.0-0.2); Platelet Count 332 X10*3/uL (160-400); Red Blood Count 4.98 X10*6/uL (4.20-5.50); Reticulocytes Absolute 0.117 X10*6/uL (0.026-0.095); White Blood Count 9.3 X10*3/uL (4.8-10.8)
[2025-09-06 11:17] LABS: Folate 10.6 ng/mL (> or = 4.0); Vitamin B12 360 pg/mL (200-900)
[2025-09-06 11:21] LABS: Anion Gap 14 (12-20); Calcium 9.7 mg/dL (8.4-10.2); Chloride 107 mmol/L (96-108); Potassium 4.2 mmol/L (3.3-5.1); Sodium 140 mmol/L (135-145)
[2025-09-06 11:26] LABS: Alanine Aminotransferase 11 U/L (0-31); Albumin Level 4.4 g/dL (3.5-5.0); Alkaline Phosphatase 74 U/L (39-117); Aspartate Amino Transferase 22 U/L (5-31); Blood Urea Nitrogen 18 mg/dL (9-16); Carbon Dioxide 23 mmol/L (22-29); Cholesterol 198 mg/dL (<200); Estimated Glomerular Filt Rate > 60; Ferritin 26 ng/mL (10-250); Free T4 (Free Thyroxine) 0.88 ng/dL (0.71-1.85); HDL Cholesterol 58 mg/dL (>40); Iron 119 mcg/dL (30-160); Percent Iron Saturation 35 % (15-50); Thyroid Stimulating Hormone 1.57 uIU/mL (0.32-4.0); Total Iron Binding Capacity 336 mcg/dL (228-428); Total Protein 7.3 g/dL (6.5-8.0); Triglycerides 105 mg/dL (<150); Unsaturated Iron Binding 217 ug/dL
== END 2025-09-06 08:22 | disposition home or self-care (01) ==
LOC: HO.HMGCLDS 08:21
PROVIDERS: PCP Internal Medicine; Visit Provider Internal Medicine
DX: Z13.1 Encounter for screening for diabetes mellitus (principal); Z13.21 Encounter for screening for nutritional disorder; I10 Essential (primary) hypertension; E78.00 Pure hypercholesterolemia, unspecified
CPT/HCPCS: 36415; 80053; 80061; 82306; 82607; 82728; 82746; 83036; 83540; 84439; 84443; 85025; 85045

== ENCOUNTER 2025-09-12 12:42 | Outpatient (AMB) | payer MEDICARE, OTHER, SELFPAY ==
[2025-09-12 12:53] VITALS: BP 138/68; PULSE 95; O2SAT 96; BMI 37.0
--- NOTE | 2025-09-12 12:53 | A.OFFPC_ITS ---
Vital Signs 09/12/25 12:53 Height 5 ft 1 in Weight 196 lb BMI 37.0 BP 138/68 Blood Pressure Location Lt brachial Position Sitting Pulse 95 Pulse Source Pulse Oximeter Pulse Oximetry (%) 96 Oxygen Delivery Method Room Air Intake Visit Reasons: Hypertension Allergies hydrochlorothiazide (HYDROCHLOROTHIAZIDE) Allergy (Intermediate, Verified 09/12/25 12:54) SEVERE CRAMPING metoprolol Allergy (Unknown, Verified 09/12/25 12:54) Muscle aches morphine (MORPHINE) Allergy (Unknown, Verified 09/12/25 12:54) Nausea and Vomiting oxycodone (From PERCODAN) Allergy (Unknown, Verified 09/12/25 12:54) Unknown Seasonal Allergies Allergy (Unknown, Verified 09/12/25 12:54) Itchy Eyes hydrochloride Allergy (Mild, Uncoded 09/12/25 12:54) Stomach Upset Medication List - Last Reconciled 09/12/25 by Vlad Ralph MD alendronate 70 mg PO QWEEK amlodipine-valsartan 10-320 mg 1 tab PO DAILY aspirin 81 mg PO DAILY cholecalciferol (vitamin D3) (Vitamin D3) 25 mcg PO DAILY multivitamin 1 tab PO DAILY Tobacco use date assessed: 03/12/25 Fall risk assessment: No Falls in past year Last assessed Fall Risk: 09/12/25 Dental Screening Dental Screen Date: 03/12/25 [facility] Medical History (Updated 09/12/25 @ 13:26 by Vlad Ralph MD) Osteopenia Mammogram declined Diaphragmatic hernia Renal calculi Cervical spondylosis Allergic rhinitis Vitamin D deficiency Tubular adenoma of colon Hypertension Erythrocytosis Surgical History Vaginal cyst History of cataract surgery S/P CLARISSA-BSO (total abdominal hysterectomy and bilateral salpingo-oophorectomy) History of appendectomy History of reconstruction of both breasts Family History Father Lung cancer Brother Lung cancer COPD (chronic obstructive pulmonary disease) Diabetes Daughter HTN (hypertension) Stroke Social History Household Members: None Housing: House Are you a primary clinical care manager to a significant other at home: No Do you presently have visiting nurse or other home services: No Alcohol intake: never Patient Tobacco Use Status: Never used Tobacco Tobacco use type: Cigarette e-Cigarette/Vaping Use: Never Used Second Hand Smoke Exposure: No service: No Current occupational status: retired Cognitive needs: No Hearing needs: No Vision needs: Yes Questionnaire Thrive Questionnaire Date Thrive assessed: 03/08/25 I am a: Patient What is your living situation today?: I have a steady place to live Within the past 12 months, did the food you bought not last and you didn't have the money to get more?: I choose not to answer this question Within the past 12 months, did you worry whether your food would run out before you got money to buy more?: I choose not to answer this question Do you have trouble paying for medicines?: No Do you have trouble getting transportation to medical appointments?: No Do you have trouble paying your heating and electricity bill?: No Do you have trouble taking care of your child, family member or friend?: I choose not to answer this question Do you have trouble with day-to-day activities such as bathing, preparing meals, shopping, managing finances, etc.?: No Are you currently unemployed and looking for a job?: No Are you interested in more education?: No Please select the resources that you would like help with: None Currently or been in a relationship where the following occur: I choose not to answer THRIVE Score: 0 AUDIT C Alcohol Use Questionnaire (AUDIT-C) 2. How many drinks containing alcohol do you have on a typical day when you are drinking?: 1 or 2 Total Score: 0 ANAMARIA-7 AMB Questionnaire ANAMARIA-7 Date ANAMARIA - 7 assessed: 03/12/25 Source: Developed by Drs. Pola Vargas, Theresa Glover, Anirudh Voss and colleagues, with an educational sujata from [employer]. Physical exam (Primary Care) Vital Signs: Last Vital Signs Pulse 95 09/12/25 12:53 BP 138/68 09/12/25 12:53 Pulse Ox 96 09/12/25 12:53 Oxygen Delivery Method Room Air 09/12/25 12:53 BMI result Body Mass Index 37.0 Tobacco/Smoking Status: Tobacco use Status Tobacco use date assessed 03/12/25 09/12/25 12:54 Patient Tobacco Use Status Never used Tobacco 09/12/25 12:54 Tobacco use type Cigarette 09/12/25 12:54 e-Cigarette/Vaping Use Never Used 09/12/25 12:54 Thrive Assessment: Date of Thrive Assessment Date Thrive assessed 03/08/25 09/12/25 12:54 Currently or been in a relationship where the following occur: I choose not to answer Const General: alert; No acute distress Eyes Conjunctivae: conjunctivae normal Resp Auscultation: clear to auscultation bilaterally Cardio Rate: regular rate Rhythm: regular rhythm GI Inspection: Yes normal to inspection Extrem General: Yes normal to inspection and No edema Office Procedures Flu Questionnaire Does the patient have a severe egg allergy?: No Does the patient have severe life threatening allergies?: No Does the patient have a fever or illness today?: No Has the patient ever had Guillain-[place] Syndrome?: No Has the patient ever had any past reaction to a flu shot?: No Immunizations Fluarix [id number] (PF) 45 mcg (15 mcg x 3)/0.5 mL IM syringe Performing Provider: Vlad Ralph MD [facility] Administered by: Libby Talley CMA on 09/12/25 13:08 Dose Route Admin Location Dispensed Lot Number Expiration Date [facility] Finishing Trimmer 0.5 mL IM Left Deltoid 0.5 mL [id number] 04/30/26 [id number] [employer] VIS Given Date VIS Provided VIS Publication Date 09/12/25 Single Vaccine 24 Eligibility Eligibility Date Funding Source Not [facility] Eligible 09/12/25 Private Coding Level of Care Code Est Pt Level 4 (50853) Complex EM visit Add On G2211 Diagnoses Essential hypertension I10 Hypertension type: essential hypertension Osteoporosis M81.0 Obesity (BMI 30-39.9) E66.9 Polycythemia vera D45 Impaired glucose tolerance R73.02 Low back pain M54.50 Assessment & Plan Assessment & Plan (1) Hypertension: Code(s): I10 - Essential (primary) hypertension Category: Medical Qualifiers: Hypertension type: essential hypertension Qualified Code(s): I10 - Essential (primary) hypertension Plan: Continue with blood pressure medication. Decrease salt intake and exercise on amlodipine valsartan 10/320 mg once a day (2) Osteoporosis: Comment: October 2024 Code(s): M81.0 - Age-related osteoporosis without current pathological fracture Category: Medical Plan: Patient has seen Dr. Byers and has been started on alendronate (3) Obesity (BMI 30-39.9): Code(s): E66.9 - Obesity, unspecified Category: Medical Plan: Diet and exercise (4) Polycythemia vera: Code(s): D45 - Polycythemia vera Category: Medical Plan: Continue to follow-up with Hematology-Oncology on therapeutic phlebotomy (5) Impaired glucose tolerance: Code(s): R73.02 - Impaired glucose tolerance (oral) Category: Medical Plan: Decrease the amount of carbohydrate intake, pasta, bread, rice and potatoes are all sugar and that is aside from all the sweet stuff, remember that fruits are good but they are Sweet also. (6) Low back pain: Code(s): M54.50 - Low back pain, unspecified Category: Medical Plan History of Present Illness The patient is an 85-year-old obese female presenting for management of chronic conditions. Her medical history includes polycythemia vera, hypertension, nephrolithiasis, and left-sided osteoporosis. For polycythemia vera, she undergoes therapeutic phlebotomy and follows with hematology and oncology, with her last visit in July 2025; the goal is to maintain her hemoglobin between 14-15. For osteoporosis, her last bone density scan was in October 2024 and she was seen by an edger saw operator in June, who discussed calcium and vitamin D supplementation and alendronate. The patient has also been seen by dermatology. The patient was last seen for a physical in March 2025, at which time she declined a mammogram. Her blood work from September 06 showed a hemoglobin of 15.7 and hematocrit of 47.5, good electrolytes and renal function, adequate iron, good liver function tests, and normal B12, vitamin D, folic acid, and thyroid levels. Her blood sugar was noted to be elevated but with a normal hemoglobin A1c, and her LDL cholesterol was 119. Health Maintenance - The patient declined a mammogram during her physical in March 2025. - Last bone density scan was in October 2024 for osteoporosis. - The patient follows up regularly with hematology/oncology for therapeutic phlebotomy. - Diet and exercise were recommended. Social History - Diet and exercise were advised. Review of Systems Physical Exam Results - Labs (11/06): Hemoglobin 15.7, Hematocrit 47.5. - Labs (09/06): Electrolytes and renal function are good. - Labs (09/06): Blood sugar elevated, but hemoglobin A1c is normal. - Labs (09/06): Iron is sufficient. - Labs (09/06): Liver function tests are good. - Labs (09/06): LDL cholesterol is 119. - Labs (09/06): Vitamin B12, vitamin D, folic acid, and thyroid levels are all within normal limits. - Bone density scan (10/2024): Findings consistent with osteoporosis. Plan Patient was informed and verbally consented to the use of an ambient scribe for clinic note documentation during this visit. 1. Hypertension The patient will continue their current medication regimen of amlodipine/valsartan 10/320 mg once a day. 2. Osteoporosis The patient has been started on alendronate by Dr. Byers. Recommendations for diet and exercise were provided. 3. Polycythemia Vera The patient will continue to follow up with hematology/oncology for therapeutic phlebotomy. 4. Elevated Blood Glucose A plan for diabetes was noted but not detailed. Discussion Notes A review of systems and chronic conditions was completed. I noted the end ocrinologist's discussion with the patient regarding calcium, vitamin D, and alendronate for her osteoporosis. I advised the patient to continue her diet and exercise regimen. Patient Instructions - Continue taking amlodipine-valsartan 10/320 mg once a day for your blood pressure. - You have been started on alendronate for your osteoporosis. - Continue with your diet and exercise. - Continue to see your hematology/sales recruitment specialist for therapeutic phlebotomy. Orders: Orders Influenza [id number] Immunization Today Z23 - Encounter for immunization Hemoglobin A1c 6 Months R73.02 - Impaired glucose tolerance (oral) Free T4 (Free Thyroxine) 6 Months R73.02 - Impaired glucose tolerance (oral) Lipid Panel 6 Months E78.00 - Pure hypercholesterolemia, unspecified, R73.02 - Impaired glucose tolerance (oral) Vitamin D 25-OH Total 6 Months R73.02 - Impaired glucose tolerance (oral) XR lumbar spine 2-3V Today M54.50 - Low back pain, unspecified Complete Blood Count Auto Diff 6 Months R73.02 - Impaired glucose tolerance (oral) Comprehensive Met. Panel 6 Months R73.02 - Impaired glucose tolerance (oral) Thyroid Stimulating Hormone 6 Months R73.02 - Impaired glucose tolerance (oral) Vitamin B12 and Folate 6 Months R73.02 - Impaired glucose tolerance (oral) Medications: Refilled amlodipine-valsartan 10-320 mg 1 tab PO DAILY 90 tabs 2RF I10 - Essential (primary) hypertension
--- OUTSIDE RECORDS SUMMARY | 2025-09-12 15:19 | XMS_ITS | Patient Health Record ---
Author Organization [facility] Address [address] [place] [address] Care Team Providers Care Welding Pantograph Machine Operator Name Role Phone Vlad Ralph Primary Care Provider Albert Da Silva Unavailable [phone] Allergies Allergen (clinical drug ingredient) Drug/Non Drug [...] Notes Problem Cellulitis and abscess of toe (745799960) Celluitis - Toes (681.10) Active confirmed Problem Onychomycosis (426452870) Onychomycosis (110.1) Active confirmed Problem Pain in limb (11644752) Pain in Limb (729.5) Active confirmed Problem Paronychia (38641808) Paronychia (681.11) Active confirmed Problem Disorder of sebaceous gland (4114461) Xerosis (706.8) Active confirmed Plan Of Treatment Pending Test Test Name Order Date [id number] NAIL, 6 OR MORE 08/03/2013 [id number] NAIL, 6 OR MORE 12/12/2013 [id number] NAIL, 6 OR MORE 04/13/2014 94787 I&D ABSCESS- SIMPLE,SINGLE 013 Insurance Providers Payer Name Payer Address Payer Phone Subscriber Number Group Number Insured Name Patient Relationship to Insured Coverage Start Date Coverage End Date Medicare National Govt Svcs Inc [address] [place] [address] [id number] Ekaterina Dennis Self - patient is the insured 0 [employer] ([employer]) [address] [place] [address] [id number] Ekaterina Dennis Self - patient is the insured Medical (General) History Medical History History ICD Code cataracts chicken pox Hiatal hernia hypertension measles mumps psoriasis/eczema rheumatic fever scarlet fever Surgical History Surgery Date(Month/Year) hysterectomy 08/1978
--- OUTSIDE RECORDS SUMMARY | 2025-09-12 15:19 | XMS_ITS | Clinical Summary ---
Author Organization [facility] Address [address] [place] [address] Care Team Providers Care Senior Lead Developer Name Role Phone Unavailable Primary Care Provider [...]
--- OUTSIDE RECORDS SUMMARY | 2025-09-12 15:19 | XMS_ITS | Clinical Summary ---
Author Organization [address] Address [address] [place] [address] Phone Care Team Providers Care Field Producer Name Role Phone Vlad Ralph MD Primary Care Provider [phone] Encounters Date Type Department Care Team Description 06/15/2025 Lab Requisition [facility] - Main Lab [address] [facility] [place] [address] Bryan Lara MD Calculus of [...] LAB CHEMISTRY METHOD 06/15/2025 3:15 PM EDT [facility] Blood Venous blood specimen / Unknown 06/15/2025 10:16 AM EDT 06/15/2025 2:16 PM EDT Bryan Lara MD LAB BLOOD ORDERABLES Final Result [facility] [address] [place] [address], from Last 3 Months Insurance MEDICARE [facility] Care Teams Field Producer Relationship Specialty Start Date End Date Vlad Ralph MD [address] [place] [address] [address] [facility] [place] [address] PCP - General Internal Medicine 06/15/25
--- OUTSIDE RECORDS SUMMARY | 2025-09-12 15:19 | XMS_ITS | Encounter Summary ---
Author Organization [facility] Address [address] [place] [address] Care Team Providers Care Machine Striper Name Role Phone Vlad Ralph MD Primary Care Provider [phone] Encounter Details Date Type Department Care Team (Late st Contact Info) Description 06/15/2025 Lab Requisition [facility] - Main Lab [address] [facility] [employer] [place] [address] [facility] MD [address] [facility] [address] [place] [address] Calculus of kidney Social History Tobacco Use [...] LAB CHEMISTRY METHOD 06/15/2025 3:15 PM EDT [facility] Blood Venous blood specimen / Unknown 06/15/2025 10:16 AM EDT 06/15/2025 2:16 PM EDT us Bryan Lara MD LAB BLOOD ORDERABLES Final Result [facility] [address] [place] [address], documented in this encounter Visit Diagnoses Diagnosis Calculus of kidney documented in this encounter Care Teams Machine Striper Relationship Specialty Start Date End Date Vlad Rlaph MD [address] [place] [address] [address] [facility] [place] [address] PCP - General Internal Medicine 06/15/25 documented as of this encounter
--- OUTSIDE RECORDS SUMMARY | 2025-09-12 15:19 | XMS_ITS | Patient Health Record ---
Author Organization [facility] Address [address] [place] [address] Care Team Providers Care Marketing Executive Name Role Phone Po Vlad SALGADO Primary Care Provider Pola Oneal [phone] Allergies Allergen (clinical drug ingredient) Drug/Non Drug [...] Status Risk Notes Problem Colon cancer screening (260877555) Colon cancer screening (V76.51) Active confirmed Problem History of adenomatous polyp of colon (583491483) History of adenomatous polyp of colon (V12.72) Active confirmed Problem Diverticular disease of colon (653385887) Colon, diverticulosis (562.10) Active confirmed Plan Of Treatment Future Test Test Name Order Date COLONOSCOPY 10/07/2012 Insurance Providers Payer Name Payer Address Payer Phone Subscriber Number Group Number Insured Name Patient Relationship to Insured Coverage Start Date Coverage End Date MEDICARE OF [place] [address] [place] [address] [id number] TERENCE CLEMENTS Self - patient is the insured [facility] [employer] [address] [place] [address] [id number] TERENCE CLEMENTS Self - patient is the insured Medical (General) History Medical History History ICD Code colonoscopy 09-07-2007--neg. except diver ticulosis and hemorrhoids 1.5 cm tubular adenoma removed in 1999 hypertension Denies DC,DM,CVA,Lung disease,renal dise ase Surgical History Surgery Date(Month/Year) hysterectomy with BSO Bilateral masectomies for fibrocystic di sease with breast implants appy
== END 2025-09-12 13:36 | disposition home or self-care (01) ==
LOC: HO.HMCH 12:43
PROVIDERS: PCP Internal Medicine; Visit Provider Internal Medicine
DX: I10 Essential (primary) hypertension (principal); D45 Polycythemia vera; E66.9 Obesity, unspecified; Z68.37 Body mass index [BMI] 37.0-37.9, adult; M81.0 Age-related osteoporosis without current pathological fracture; R73.02 Impaired glucose tolerance (oral); M54.50 Low back pain, unspecified; Z23 Encounter for immunization

== ENCOUNTER → 2025-09-12 12:42 | Outpatient (BNVA) | payer MEDICARE, OTHER, SELFPAY | PROVIDERS: PCP Internal Medicine; Visit Provider Internal Medicine | DX: I10 Essential (primary) hypertension (principal); M81.0 Age-related osteoporosis without current pathological fracture; E66.9 Obesity, unspecified; D45 Polycythemia vera; R73.02 Impaired glucose tolerance (oral); M54.50 Low back pain, unspecified; Z23 Encounter for immunization; Z68.37 Body mass index [BMI] 37.0-37.9, adult | CPT/HCPCS: 90471; 90656; 99212 ==

== ENCOUNTER 2025-10-11 10:07 | Outpatient (REF) | payer MEDICARE, OTHER, SELFPAY ==
--- NOTE | ~2025-10-11 | XR_ITS ---
EXAMINATION: XR LUMBOSACRAL SPINE CLINICAL INFORMATION: M54.50 - Low back pain, unspecified COMPARISON: None available. TECHNIQUE: Three views of the lumbosacral spine. FINDINGS: Levoconvex curvature centered at the thoracolumbar junction. Question mild retrolisthesis at L1-2, L2-3. Vertebral body heights are preserved. No evidence of acute fracture. Multilevel mild disc degeneration. Multilevel facet degeneration in the mid/lower lumbar spine. SI joints are symmetric. No abnormal soft tissue calcification. XR/XR lumbar spine 2-3V IMPRESSION: No acute osseous findings. Mild lumbar spondylosis Electronically signed by: Dewey Mauricio MD 10/11/2025 04:24 PM [facility]OD[facility]
== END 2025-10-11 10:08 | disposition home or self-care (01) ==
LOC: HO.XRAY 10:07
PROVIDERS: PCP Internal Medicine; Visit Provider Internal Medicine
DX: M54.50 Low back pain, unspecified (principal)
CPT/HCPCS: 72100

== ENCOUNTER → 2025-10-11 10:13 | Outpatient (BNV) | payer MEDICARE, OTHER, SELFPAY | PROVIDERS: PCP Internal Medicine; Visit Provider Radiology Diagnostic Ultrasound | DX: M47.816 Spondylosis without myelopathy or radiculopathy, lumbar region (principal) | CPT/HCPCS: 72100 ==

== ENCOUNTER 2025-10-27 09:11 | Outpatient (AMB) | payer MEDICARE, OTHER, SELFPAY ==
--- OUTSIDE RECORDS SUMMARY | 2025-10-27 09:13 | XMS_ITS | Patient Health Record ---
Author Organization [facility] Address [address] [place] [address] Care Team Providers Care Agile Qa Tester Name Role Phone Vlad Ralph Primary Care Provider Albert Da Silva Unavailable [phone] Allergies Allergen (clinical drug ingredient) Drug/Non Drug [...] Notes Problem Cellulitis and abscess of toe (211621637) Celluitis - Toes (681.10) Active confirmed Problem Onychomycosis (610249208) Onychomycosis (110.1) Active confirmed Problem Pain in limb (84615209) Pain in Limb (729.5) Active confirmed Problem Paronychia (62642660) Paronychia (681.11) Active confirmed Problem Disorder of sebaceous gland (0810039) Xerosis (706.8) Active confirmed Plan Of Treatment Pending Test Test Name Order Date [id number] NAIL, 6 OR MORE 08/03/2013 [id number] NAIL, 6 OR MORE 12/12/2013 [id number] NAIL, 6 OR MORE 04/13/2014 03859 I&D ABSCESS- SIMPLE,SINGLE 013 Insurance Providers Payer Name Payer Address Payer Phone Subscriber Number Group Number Insured Name Patient Relationship to Insured Coverage Start Date Coverage End Date Medicare National Govt Svcs Inc [address] [facility] [place] [address] [id number] Ekaterina Dennis Self - patient is the insured 0 [employer] ([employer]) [address] [place] [address] [id number] Ekaterina Dennis Self - patient is the insured Medical (General) History Medical History History ICD Code cataracts chicken pox Hiatal hernia hypertension measles mumps psoriasis/eczema rheumatic fever scarlet fever Surgical History Surgery Date(Month/Year) hysterectomy 08/1978
--- OUTSIDE RECORDS SUMMARY | 2025-10-27 09:14 | XMS_ITS | Patient Health Record ---
Author Organization [facility] Address [address] [place] [address] Care Team Providers Care Cell Technician Name Role Phone Vlad Ralph MD Primary Care Provider Pola Oneal [phone] Allergies Allergen (clinical drug ingredient) Drug/Non Drug Allergy documented on EMR Reaction Allergy Type Onset Date Status seasonal (uncoded) Unknown Allergy A ctive morphine Morphine Sulfate Unknown Drug Allergy Active Percodan Unknown Drug Allergy Active Reason For Referral No Information Medications Medication SIG (Take, Route, Frequency, Duration) Notes Start Date End Date Status Colyte with Flavor Packs 240 GM Solution Reconstituted As directed Orally once; Duration: 1 dose 10/28/2012 Active Patanol Active Erica Allergy Ac tive Exforge 5/320 Acti ve Social History Social History Additional Details Category Social Info Options Details Miscellaneous: Marital status: Occupation: retired Section Notes: Nonsmoker; no sig. alcohol Problems Problem Type SNOMED Code ICD Code Onset Dates Problem Status W/U Status Risk Notes Problem Colon cancer screening (817958772) Colon cancer screening (V76.51) Active confirmed Problem History of adenomatous polyp of colon (973582600) History of adenomatous polyp of colon (V12.72) Active confirmed Problem Diverticular disease of colon (042671852) Colon, diverticulosis (562.10) Active confirmed Plan Of Treatment Future Test Test Name Order Date COLONOSCOPY 10/07/2012 Insurance Providers Payer Name Payer Address Payer Phone Subscriber Number Group Number Insured Name Patient Relationship to Insured Coverage Start Date Coverage End Date MEDICARE OF [place] [address] [place], [place] [id number] TERENCE CLEMENTS Self - patient is the insured [facility] [address] [place] [phone] [id number] TYREE TERENCE Self - patient is the insured Medical (General) History Medical History History ICD Code colonoscopy 09-07-2007--neg. except diver ticulosis and hemorrhoids 1.5 cm tubular adenoma removed in 1999 hypertension Denies NM,DM,CVA,Lung disease,renal dise ase Surgical History Surgery Date(Month/Year) hysterectomy with BSO Bilateral masectomies for fibrocystic di sease with breast implants appy
--- OUTSIDE RECORDS SUMMARY | 2025-10-27 09:14 | XMS_ITS | Clinical Summary ---
Author Organization [address] Address [address] [place] [address] Phone Care Team Providers Care Dispatch Associate Name Role Phone Vlad Ralph MD Primary Care Provider [phone] Social History Tobacco Use Types Packs/Day Years [...] on patient's age to complete this topic Insurance MEDICARE [facility] Care Teams Dispatch Associate Relationship Specialty Start Date End Date Vlad Ralph MD [address] [place] [address] [address] [facility] [place] [address] PCP - General Internal Medicine 06/15/25
--- OUTSIDE RECORDS SUMMARY | 2025-10-27 09:14 | XMS_ITS | Clinical Summary ---
Author Organization [facility] Prior to 03/31/25 Address [address] [place] [address] Care Team Providers Care Air Marshal Name Role Phone Unavailable Primary Care Provider [...]
--- OUTSIDE RECORDS SUMMARY | 2025-10-27 09:14 | XMS_ITS | Encounter Summary ---
Author Organization [facility] Address [address] [place] [address] Care Team Providers Care Manager Advertising Name Role Phone Vlad Ralph MD Primary Care Provider [phone] Encounter Details Date Type Department Care Team (Late st Contact Info) Description 06/15/2025 Lab Requisition [facility] - Main Lab [address] [facility] [place] [address] [facility]ara MD [address] [facility] [address] [place] [address] Calculus of kidney Social History Tobacco Use [...] LAB CHEMISTRY METHOD 06/15/2025 3:15 PM EDT [facility] Blood Venous blood specimen / Unknown 06/15/2025 10:16 AM EDT 06/15/2025 2:16 PM EDT us Bryan Lara MD LAB BLOOD ORDERABLES Final Result [facility] [address] [place] [address], documented in this encounter Visit Diagnoses Diagnosis Calculus of kidney documented in this encounter Care Teams Manager Advertising Relationship Specialty Start Date End Date Vlad Ralph MD [address] [place] [address] Dr [address] [facility] [place] [address] PCP - General Internal Medicine 06/15/25 documented as of this encounter
[2025-10-27 09:53] VITALS: BP 142/90; PULSE 114; RESP 16; TEMP 37.2; O2SAT 94; BMI 37.4
--- NOTE | 2025-10-27 09:53 | MHC.OFFWIV ---
Intake Vital Signs 10/27/25 09:53 Height 5 ft 1 in Weight 198 lb BMI 37.4 BP 142/90 H Blood Pressure Location Lt brachial Position Sitting Respiration 16 Pulse 114 H Pulse Source Pulse Oximeter Temp 99.0 F Temp Source Oral Pulse Oximetry (%) 94 Oxygen Delivery Method Room Air Intake Visit Reasons: EP Possible infected cyst under right arm Intake Note: Pt is here today c/o Rt under arm /cyst Patient Tobacco Use Status: Never used Tobacco Pediatric Neurologist Required: No Allergies hydrochlorothiazide (HYDROCHLOROTHIAZIDE) Allergy (Intermediate, Verified 10/27/25 09:53) SEVERE CRAMPING metoprolol Allergy (Unknown, Verified 10/27/25 09:53) Muscle aches morphine (MORPHINE) Allergy (Unknown, Verified 10/27/25 09:53) Nausea and Vomiting oxycodone (From PERCODAN) Allergy (Unknown, Verified 10/27/25 09:53) Unknown Seasonal Allergies Allergy (Unknown, Verified 10/27/25 09:53) Itchy Eyes hydrochloride Allergy (Mild, Uncoded 10/27/25 09:53) Stomach Upset HPI EP Possible infected cyst under right arm HPI Details Patient is an 85-year-old female with impaired fasting glucose but no diabetes, and with a 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 She reports that 2 days ago she started to feel tenderness to the area, and this morning when awakening it was even more tender. She denies fever or chills, fatigue, or other significant associated systemic infection symptoms. No report of fever chills, weakness, malaise or myalgias, nausea or vomiting, dizziness or vertigo, or other symptoms suggestive of systemic infection. [facility] Medical History (Updated 09/12/25 @ 13:26 by Vlad Ralph MD) Osteopenia Mammogram declined Diaphragmatic hernia Renal calculi Cervical spondylosis Allergic rhinitis Vitamin D deficiency Tubular adenoma of colon Hypertension Erythrocytosis Surgical History Vaginal cyst History of cataract surgery S/P CLARISSA-BSO (total abdominal hysterectomy and bilateral salpingo-oophorectomy) History of appendectomy History of reconstruction of both breasts Family History Father Lung cancer Brother Lung cancer COPD (chronic obstructive pulmonary disease) Diabetes Daughter HTN (hypertension) Stroke Social History Household Members: None Housing: House Are you a primary administrator health care facility to a significant other at home: No Do you presently have visiting nurse or other home services: No Alcohol intake: never Patient Tobacco Use Status: Never used Tobacco Tobacco use type: Cigarette e-Cigarette/Vaping Use: Never Used Second Hand Smoke Exposure: No service: No Current occupational status: retired Cognitive needs: No Hearing needs: No Vision needs: Yes Physical Exam Exam Exam: Palpable approximately 1 cm mass to the right inferior axillary area that is slightly erythematous and indurated, but no surrounding streaking or erythema, and no obvious warmth. There is no gross fluctuance or obvious central itis to the area. 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 It is not ideal for incision and drainage yet, at this point, as there is no of obvious fluctuant area to guide incision. I advised soaking the area in warm soapy water a few times a day, which she was amenable to. This might alleviate symptoms, and if it is becoming an abscess, could draw fluid to the surface to help guide I&D. I think it is advisable to start antibiotic in the meantime to decrease acute inflammation of the epidermoid cyst. I wrote her for doxycycline for MRSA coverage. She has a doughnut fryer in 2 days which has been following this, and can follow up with her and remove cyst if still needed. She was amenable to this plan, and agreed to follow up [place]. She knows to go to the emergency department with any worrisome symptoms. Medications: New doxycycline monohydrate 100 mg PO BID 20 caps 0RF cellulitis 10 days Coding Level of Care Code Est Pt Level 4 (97901) Diagnoses Epidermoid cyst of skin of axilla L72.0
== END 2025-10-27 10:27 | disposition home or self-care (01) ==
PROVIDERS: PCP Internal Medicine; Visit Provider Physician Assistant Medical
DX: L72.0 Epidermal cyst (principal)

== ENCOUNTER → 2025-10-27 09:11 | Outpatient (BNVA) | payer MEDICARE, OTHER, SELFPAY | PROVIDERS: PCP Internal Medicine; Visit Provider Physician Assistant Medical | DX: L72.0 Epidermal cyst (principal) | CPT/HCPCS: 99212 ==